=== PATIENT | female | born 1975 | race Caucasian/White ===

== ENCOUNTER 2018-11-18 12:21 | Day surgery (SDC) | payer OTHER ==
[2018-11-15 15:23] VITALS: BMI 29.7
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
[~2018-11-18 12:21] MED LIST: ACETAMINOPHEN IV (For NPO) 1,000 MG in EMPTY BAG 1 BAG IVPB ONE; DEXAMETHASONE SOD PHOSPHATE 10 MG/ML 1 ML VIAL IV ONE; HEPARIN SODIUM,PORCINE 5,000 UNIT/ML 1 ML VIAL SQ ONE; INDOCYANINE GREEN 25 MG VIAL IV STA; LACTATED RINGERS 1,000 ML IV SCH; MIDAZOLAM (PF) 2 MG/2 ML VIAL IV PRN; ONDANSETRON 4 MG/2 ML VIAL IVP ONE; SCOPOLAMINE 1.5MG/72HR PATCH TRANSDERM ONE
[2018-11-18 14:00] LABS: Basophils # (A) 0.1 k/uL (0-0.2); Basophils % (A) 1 %; Eosinophils # (A) 0.2 k/uL (0-0.7); Eosinophils % (A) 2 %; HCT 37.5 % (34.0-46.0); HGB 12.2 gm/dL (11.4-16.0); Lymphocytes # (A) 3.5 k/uL (1.0-4.8); Lymphocytes % (A) 37 %; MCH 29.3 pg (25.0-35.0); MCHC 32.6 g/dL (31.0-37.0); MCV 89.7 fL (80.0-100.0); Mean Platelet Volume 7.6; Monocytes # (A) 0.5 k/uL (0-1.0); Monocytes % (A) 5 %; Neutrophils % (A) 54 %; Platelet Count 278 k/uL (150-450); RBC 4.18 m/uL (3.80-5.40); RDW 12.6 % (11.5-15.5); WBC 9.4 k/uL (3.8-10.6)
[2018-11-18] MEDS ORDERED: LIDOCAINE 1% 20 ML VIAL (10MG/ML) FOR IV START INTRADERMA ONE (14:04)
[2018-11-18 14:06] LABS: ALT 29 U/L (9-52); AST 24 U/L (14-36); Alkaline Phosphatase 81 U/L (38-126); Anion Gap 9 mmol/L; Blood Urea Nitrogen 12 mg/dL (7-17); Calcium 9.5 mg/dL (8.4-10.2); Carbon Dioxide 27 mmol/L (22-30); Chloride 107 mmol/L (98-107); Glucose 83 mg/dL (74-99); Potassium 3.8 mmol/L (3.5-5.1); Sodium 143 mmol/L (137-145); Total Bilirubin 0.5 mg/dL (0.2-1.3); Total Protein 7.1 g/dL (6.3-8.2)
[2018-11-18] MEDS ORDERED: LIDOCAINE 1% INJ 10MG/ML (20 ML MDV) ONE (16:19)
[2018-11-18] MEDS ORDERED: NEOSTIGMINE 1 MG/ML 10 ML VIAL ONE (16:19)
[2018-11-18] MEDS ORDERED: MIDAZOLAM 2 MG/2 ML VIAL ONE (16:19)
[2018-11-18] MEDS ORDERED: PROPOFOL 10 MG/ML 20 ML VIAL IV ONE (16:19)
[2018-11-18] MEDS ORDERED: KETOROLAC 30 MG/ML 1 ML VIAL ONE (16:19)
[2018-11-18] MEDS ORDERED: INDOCYANINE GREEN 25 MG VIAL IV ONE (16:19)
[2018-11-18] MEDS ORDERED: SUCCINYLCHOLINE CHLORIDE 100 MG/5 ML SYR IV ONE (16:19)
[2018-11-18] MEDS ORDERED: GLYCOPYRROLATE 0.2 MG/ML 2 ML VIAL ONE (16:19)
[2018-11-18] MEDS ORDERED: fentaNYL (PF) 50 MCG/ML 2 ML AMP ONE (16:19)
[2018-11-18] MEDS ORDERED: ROCURONIUM BROMIDE 10 MG/ML 10 ML VIAL IV ONE (16:19)
[2018-11-18] MEDS: ceFAZolin IN SWFI 2 GM/20 ML SYRINGE IVP ONE ×2 (16:19→16:32)
[2018-11-18] MEDS ORDERED: BUPIVACAIN-EPI 0.25%-1:200,000 30 ML VIAL SQ ONE ×2 (16:32→16:45)
[2018-11-18] MEDS ORDERED: LACTATED RINGERS 1,000 ML IV ONE (17:11)
--- NOTE | 2018-11-18 17:11 | P.OP ---
Date of Procedure: 11/18/18 Description of Procedure: SURGEON: LINETTE POLLOCK MD PREOPERATIVE DIAGNOSES: 1. Right upper quadrant abdominal pain 2. Chronic cholecystitis 3. Hypertensive heart disease 4. Graves' disease 5. Gastroesophageal reflux disease 6. Postop nausea and vomiting POSTOPERATIVE DIAGNOSES: 1. Right upper quadrant abdominal pain 2. Chronic cholecystitis 3. Hypertensive heart disease 4. Graves' disease 5. Gastroesophageal reflux disease 6. Postop nausea and vomiting OPERATION: Robotic-assisted da Tori Xi laparoscopic cholecystectomy, multiport with FIREFLY ESTIMATED BLOOD LOSS: 5 mL. SPECIMENS REMOVED: Gallbladder. COMPLICATIONS: None. OPERATIVE FINDINGS: 1. Chronic cholecystitis with moderate adhesion of greater omentum to gallbladder INDICATIONS: The patient is a 43-year-old female who presents with cholelcystitis. Surgical intervention with a laparoscopic cholecystectomy was described at length including injury to the biliary tree, bleeding, infection, need for further surgery. Informed consent was obtained. Robotic assisted laparoscopic approach was described. Benefits and risks of the procedure including but not limited to bleeding, infection, injury to the biliary tree was described. Informed consent was obtained. DESCRIPTION OF PROCEDURE: Patient was brought to the operating room, placed in supine position. After general induction, the abdomen had been prepped and draped in standard sterile fashion. The robotic da Tori XI system was primed. After a timeout protocol was performed, the patient had been prepped and draped in standard sterile fashion. The patient was injected with indocyanine green. A 5 mm 0 degrees laparoscopic trocar entry was performed along the left upper quadrant. The abdomen insufflated to 15 mmHg pressure which was tolerated well. Diagnostic laparoscopy demonstrated no injury to bowel viscera or mesentery. The liver surface was unremarkable. Next, two 8 mm robotic ports were placed along the right upper abdomen. The camera 8-mm port was maintained along the epigastrium. Another 8 mm port was placed along the left upper abdominal wall after exchanging the 5 mm port. Please note that the ports were placed at least 10 to 15 cm away from the target anatomy of the gallbladder. The robot was docked along the left lateral abdomen. The patient was repositioned in reverse Trendelenburg position. Using a grasper for arm 3, a grasper for arm 4, including hook cautery for arm 1 , the robotic system was docked and primed as described. Instruments were interchanged by the funeral home assistant including hook cautery, Bovie cautery and clip appliers. I had sat at the console. Adhesions of the gallbladder were addressed using cautery. The gallbladder fundus was retracted over the dome of the liver. Initial attention was brought to the infundibulum which was gently retracted in the inferior lateral approach. Using a grasper, the cystic duct including the cystic artery was carefully skeletonized. FIREFLY was used to identify the cystic artery and cystic structures. Large PLASTIC clips were used throughout the entire case. Using a clip diesel maintenance technician 2 clips were placed proximally, and 1 clip was placed distally along the cystic duct and then cauterized with the cautery. Again care was taken to avoid any injury to the biliary tree as the common bile duct was clearly visualized during this portion of dissection. Next, the cystic artery was similarly clipped and cauterized. Electro-Bovie cautery was used to remove the gallbladder from the hepatic fossa. Hemostasis was checked and found to be adequate. The robot was undocked. I re-scrubbed into the case. Using a 10 mm Endo Catch bag via the left upper quadrant incision, the specimen was removed from the abdominal cavity. All pneumoperitoneum instruments were evacuated from the abdominal cavity. The incisions were reapproximated using 4-0 Monocryl in an interrupted subcuticular fashion. Fascial defects were less than 8 mm in size. Please note along the trocar sites, local anesthetic was placed as a field block prior to insertion of all instruments. Liquid glue was applied to the skin. At the end of the procedure needle, sponge, and instrument count had been verified correct by the hand frame surgical elastic knitter. The patient was transferred to postanesthesia care unit in stable condition. Intraoperative films were shared with the patient's family who were very pleased with the level of care. Console time 9 minutes Plan - Discharge Summary New Discharge Prescriptions: New HYDROcodone/APAP 5-325MG [[place] 5-325] 1 tab PO Q4HR PRN 3 Days #18 tab PRN Reason: Pain Ibuprofen [Motrin] 600 mg PO Q8HR PRN #30 tab PRN Reason: Pain No Action Cyclobenzaprine [Flexeril] 5 mg PO HS Omeprazole [PriLOSEC] 20 mg PO QAM Losartan [Cozaar] 50 mg PO QAM Levothyroxine Sodium 137 mcg PO QAM Ibuprofen 800 mg PO TID PRN PRN Reason: Pain Discharge Medication List Cyclobenzaprine [Flexeril] 5 mg PO HS 11/15/18 [History] Ibuprofen 800 mg PO TID PRN 11/15/18 [History] Levothyroxine Sodium 137 mcg PO QAM 11/15/18 [History] Losartan [Cozaar] 50 mg PO QAM 11/15/18 [History] Omeprazole [PriLOSEC] 20 mg PO QAM 11/15/18 [History] HYDROcodone/APAP 5-325MG [[place] 5-325] 1 tab PO Q4HR PRN 3 Days #18 tab [Rx] Ibuprofen [Motrin] 600 mg PO Q8HR PRN #30 tab 11/18/18 [Rx] Follow up Appointment(s)/Referral(s): Linette Pollock MD [STAFF PHYSICIAN] - 11/30/18 Patient Instructions/Handouts: Low Fat Diet (DC), Laparoscopic Cholecystectomy (IP) Activity/Diet/Wound Care/Special Instructions: No lifting over 4 pounds in 2 weeks. May shower. No baths or soaks. Low-fat diet over the weekend. Discharge Disposition: HOME SELF-CARE
[2018-11-18 17:21] VITALS: TEMP 96.8
[2018-11-18] MEDS: HYDROmorphone 0.5 MG/0.5 ML SYRINGE IVP PRN ×2 (17:23→17:28)
[2018-11-18 18:03] VITALS: RESP 18
[2018-11-18 19:00] VITALS: BP 110/73; PULSE 83
== END 2018-11-18 19:38 | disposition home or self-care (01) ==
LOC: OR 12:21
PROVIDERS: ATTEND Surgery Plastic and Reconstructive Surgery
DX: K80.10 Calculus of gallbladder with chronic cholecystitis without obstruction (principal); I11.9 Hypertensive heart disease without heart failure; K21.9 Gastro-esophageal reflux disease without esophagitis; E05.00 Thyrotoxicosis with diffuse goiter without thyrotoxic crisis or storm; I10 Essential (primary) hypertension; E07.9 Disorder of thyroid, unspecified; Z79.890 Hormone replacement therapy; Z79.899 Other long term (current) drug therapy; Z88.8 Allergy status to other drugs, medicaments and biological substances
CPT/HCPCS: 47562; S2900; 80053; 85025; 88304

== ENCOUNTER → 2020-03-05 | Outpatient (CLI) | payer OTHER ==
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
== END | disposition home or self-care (01) ==
LOC: WWCWWP 10:53
PROVIDERS: ATTEND Surgery
DX: Z53.9 Procedure and treatment not carried out, unspecified reason (principal)

== ENCOUNTER → 2020-03-12 | Day surgery (SDC) | payer OTHER ==
[2020-03-12 08:25] VITALS: RESP 16
[2020-03-12 10:12] VITALS: BP 150/80; PULSE 81; TEMP 97.8
--- NOTE | 2020-03-12 10:27 | USB ---
EXAMINATION TYPE: US biopsy breast VAD RT DATE OF EXAM: 03/12/2020 CLINICAL HISTORY: R92.8, Abnormal mammogram. TECHNIQUE: Ultrasound guided vaccuum assisted core biopsy of right breast. COMPARISON: Outside ultrasound 02/12/2020, outside mammogram 02/12/2020 FINDINGS: The ultrasound guided core biopsy procedure and lymph node biopsy procedure was explained to the patient. The risks, benefits, alternatives were discussed. Given the vascular nature on the pre imaging study specific discussion regarding of the risk for bleeding was performed. An informed consent was then obtained. Timeout was performed. The patient was placed in supine positioning for imaging and for the procedure. The overlying skin was prepped with betadine and sterilely draped in usual sterile fashion. Lidocaine 1% was used as anesthetic into the skin and deeper breast tissue was anesthetized with 1% lidocaine with epinephrine up to area of concern in the breast. A small skin livia was made with surgical scalpel. Under ultrasound guidance, a 12-gauge vacuum assisted biopsy device was used to obtain 5 core samples. A biopsy ribbon clip was left in lesion. Under ultrasound guidance Celero needle was utilized to obtain 3 core samples of the abnormal lymph node. A hygroma marked marker was placed in the biopsied lymph node. Good hemostasis was obtained with direct pressure. Discharge instructions were discussed with the patient. The patient will follow up with the referring physician for results. Postprocedure mammogram: No mammographic imaging was performed at this time. This can be performed prior to localization. The patient tolerated the procedure well without any immediate complication. The patient was discharged to home in stable condition. IMPRESSION: 1. Successful ultrasound guided biopsy right breast breast ultrasound lesion. 2. Successful ultrasound-guided biopsy of right axillary lymph node. Pathology Results: Malignant A. RIGHT BREAST AT 9:00 POSITION, NEEDLE CORE BIOPSY: Ranulfo Grade 3 infiltrating duct carcinoma with focal necrosis involving needle core and associated clot. See note. B. RIGHT AXILLARY NODULE, NEEDLE CORE BIOPSIES: Lymph node involved by metastatic adenocarcinoma with multifocal necrosis histologically identical to that in specimen A. ADDENDUM REPORT It is noted that the tumor was negative for HER2 by immunohistochemistry. Given that the tumor is high grade, the findings represent a histopathologic discordance. For this reason, block A1 will be sent for HER2 studies by FISH. When complete, the results can be found in the patient's EMR as a scanned report. Recommendation Surgical consult of the right breast. MTDD
== END ==
LOC: RADUSWWP 08:02
PROVIDERS: ATTEND Surgery
DX: C50.911 Malignant neoplasm of unspecified site of right female breast (principal); C77.3 Secondary and unspecified malignant neoplasm of axilla and upper limb lymph nodes; N64.1 Fat necrosis of breast; Z17.1 Estrogen receptor negative status [ER-]
CPT/HCPCS: 88305; 88342; 88341; 38505; 19083; A4648; J2001; 19084; 76942

== ENCOUNTER → 2020-03-19 | Outpatient (CLI) | payer OTHER ==
--- NOTE | 2020-03-19 14:16 | P.PN ---
Progress Note - Text Progress Note Date: 03/19/20 Chief complaint: Stage IIB right breast cancer, discussion of core biopsy results Camryn is a 44-year-old white female status post ultrasound-guided core biopsy of the right breast at 9:00 [place] [id number]. Pathology revealed infiltrating ductal carcinoma, triple negative, grade 3. This makes her a stage IIb according to NCCN guidelines. I discussed her case with medical oncology who recommended neoadjuvant chemotherapy. Additionally secondary to her young age I have recommended that she have genetic testing. The patient states she tolerated the procedure without difficulty. She does have some ecchymosis at both sites which is resolving. The ecchymosis in the axillas approximately 1" x 1". The ecchymosis at the breast site is approximately 1" x 2.5". She has not had any fever or chills. She has no complaints related to the biopsy. I have had a conference with the patient and her . We have talked about the tumor staging. We have also talked about neoadjuvant chemotherapy, different surgical options, medical and radiation oncology. I discussed with them that the patient will most likely have neoadjuvant chemotherapy prior to any surgical intervention. Surgical options range from lumpectomy and removal of right axillary node which was involved with cancer, possible axillary node dissection, mastectomy plus or minus reconstruction. Additionally treatment options may change based on genetic testing. The patient understands that if she were to have reconstruction she would need to see a plastic surgeon. At this time she is going to have a teleconference with medical oncology. I have answered questions from the patient and her . One question was as to whether or not the patient could continue to work if she starts chemotherapy secondary to immune compromise in the hand unexciting. I suggested that they discuss this with medical oncology. I have also recommended that a Port-A-Cath would be reasonable given neoadjuvant chemotherapy would be most likely recommended and they understand this. The patient and her have been given an appointment to see me in mid March. Is tentatively set for April 11 at 1:40 PM. Her case will be presented at tumor board. At the present time she is believed to be a B1 as graded per the [place] site of breast surgeons grading system. This is a new system being used in the colon but 19 setting. It is appropriate that she would receive neoadjuvant chemotherapy. Results: Stage IIB right breast infiltrating ductal carcinoma T1 and 1 ER negative KS negative HER-2 negative grade 3 Physical exam: Unable to perform his this is a teleconference conference Impression/Plan: 1. Stage IIB T1 N1 and negative KS negative HER-2 negative grade 3 right breast 2. Patient is premenopausal have suggested genetic testing 3. Have discussed case with medical oncology she will have a teleconference with them tomorrow and most likely initiate neoadjuvant chemotherapy 4. Patient is going to follow up with me in mid March depending on the AP and that makes status 5. Most likely will have Port-A-Cath placement for her neoadjuvant chemotherapy 6. If she has any questions or concerns she is going to call the office before 1. Present case at tumor board 8. Patient is a B1 surgical priority as per [place] [employer] Present at teleconference 1. Dr. Jovanny Aguilera 2. Joan Mooney nurse navigator 3. Vanessa Davidson medical imaging technologist CC: Kelly Shaw encounter 30 minutes Encountered was via teleconference. Approximately 30 minutes were spent discussing the results and
== END | disposition home or self-care (01) ==
LOC: WWCWWP 13:30
PROVIDERS: ATTEND Surgery
DX: Z53.9 Procedure and treatment not carried out, unspecified reason (principal)

== ENCOUNTER 2020-03-22 06:23 | Day surgery (SDC) | payer OTHER ==
[2020-03-21 12:24] VITALS: BMI 32.9
[~2020-03-22 06:23] MED LIST changes: -ACETAMINOPHEN IV (For NPO) 1,000 MG in EMPTY BAG 1 BAG IVPB ONE; +HYDROmorphone 0.5 MG/0.5 ML SYRINGE IVP PRN; -INDOCYANINE GREEN 25 MG VIAL IV STA; +LIDOCAINE 1% (10MG/ML) FOR IV START INTRADERMA PRN; -MIDAZOLAM (PF) 2 MG/2 ML VIAL IV PRN; +Pre Op ABX Message 1 EACH MISC MISCELLANE ONE; -SCOPOLAMINE 1.5MG/72HR PATCH TRANSDERM ONE
[2020-03-22] MEDS ORDERED: LACTATED RINGERS 1,000 ML IV ONE (06:50)
[2020-03-22] MEDS ORDERED: SCOPOLAMINE 1.5MG/72HR PATCH TRANSDERM ONE (06:51)
[2020-03-22] MEDS ORDERED: PROPOFOL 10 MG/ML 20 ML VIAL IV ONE (07:51)
[2020-03-22] MEDS ORDERED: LIDOCAINE 1% INJ 10MG/ML (20 ML MDV) ONE (07:51)
[2020-03-22] MEDS ORDERED: fentaNYL (PF) 50 MCG/ML 2 ML AMP ONE (07:51)
[2020-03-22] MEDS ORDERED: MIDAZOLAM 2 MG/2 ML VIAL ONE (07:51)
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
[2020-03-22] MEDS ORDERED: LIDOCAINE 1% INJ 10MG/ML (20 ML MDV) SQ ONE (08:16)
--- NOTE | 2020-03-22 09:00 | P.OP ---
Date of Procedure: 03/22/20 Procedure(s) Performed: PREOPERATIVE DIAGNOSIS: Right breast cancer POSTOPERATIVE DIAGNOSIS: Same PROCEDURE: Port-A-Cath placement SURGEON: Peter EBL: Minimal ANESTHESIA: Sedation COMPLICATIONS: None OPERATIVE PROCEDURE: Patient was brought and placed on the operative table in the supine position. The patient was sedated per anesthesia that time. The chest and neck were prepped and draped in usual sterile fashion. The ultrasound probe was used to identify the location of the left internal jugular vein. The skin was localized with lidocaine. The Seldinger needle was advanced into the IJ under ultrasound guidance. The wire was advanced through the needle under fluoroscopic guidance into the superior vena cava. A port pocket was created in the left infraclavicular location. The catheter was tunneled from the wire entrance site to the port pocket. The port was then connected to the catheter. The dilator introducer was threaded over the guidewire. The guidewire and dilator were then removed. The catheter was advanced through the introducer and introducer was then removed. The tip was seen to be in the right atrial junction. Port was flushed with both saline and a Hep-Lock solution. There was good flow both in and out of the port. The port was sutured in underlying tissues using 3-0 silk sutures. The subcutaneous tissues were reapproximated using 3-0 Vicryl sutures and the skin at both locations using 4-0 Monocryl sutures. Skin glue and sterile dressings then applied. DISPOSITION: Stable to recovery room
[2020-03-22 09:02] VITALS: TEMP 97.6
--- NOTE | 2020-03-22 09:26 | XR ---
EXAMINATION TYPE: XR chest 1V confirm line [facility] DATE OF EXAM: 03/22/2020 COMPARISON: 11/17/2013 HISTORY: 44-year-old female check line placement TECHNIQUE: Single frontal view of the chest is obtained. FINDINGS: Left anterior chest wall injection port with catheter tip at the cavoatrial junction. Heart normal si ze. There seem to be mild patchy density at the periphery of the left mid and lower lung. No pleural effusion. IMPRESSION: 1. Left anterior chest wall injection port with catheter tip at the cavoatrial junction. 2. Unable to exclude some atelectasis or early developing infiltrates at the periphery of the left mi d and lower lung.
[2020-03-22 10:03] VITALS: BP 125/78; PULSE 78; RESP 16
[2020-03-22] MEDS ORDERED: NALOXONE 0.4 MG/ML 1 ML VIAL IV PRN (10:20)
--- NOTE | 2020-03-22 11:02 | FL ---
Fluoroscopy HISTORY: Portacath placement 21 seconds fluoroscopy time supplied to the referring clinician. 1 intraoperative C-arm images docum ent the procedure. See dictated report from general surgery.
== END 2020-03-22 10:35 | disposition home or self-care (01) ==
LOC: OR 06:23
PROVIDERS: ATTEND Surgery
DX: C50.911 Malignant neoplasm of unspecified site of right female breast (principal); I10 Essential (primary) hypertension; K21.9 Gastro-esophageal reflux disease without esophagitis; E05.00 Thyrotoxicosis with diffuse goiter without thyrotoxic crisis or storm; Z88.8 Allergy status to other drugs, medicaments and biological substances; Z79.890 Hormone replacement therapy; Z79.899 Other long term (current) drug therapy; Z90.49 Acquired absence of other specified parts of digestive tract; Z98.890 Other specified postprocedural states
CPT/HCPCS: 81025; 87635; 77001; 36561; C1788; J2250; J1644; J1100; J2405; J2001; J3010; J1642; J2704

== ENCOUNTER 2020-03-25 14:20 | Emergency (ER) | payer OTHER ==
[2020-03-25 14:27] VITALS: RESP 18
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
[2020-03-25 14:57] LABS: Basophils # (A) 0.1 k/uL (0-0.2); Basophils % (A) 1 %; Eosinophils # (A) 0.3 k/uL (0-0.7); Eosinophils % (A) 3 %; HGB 12.6 gm/dL (11.4-16.0); Lymphocytes # (A) 3.9 k/uL (1.0-4.8); Lymphocytes % (A) 31 %; MCH 29.9 pg (25.0-35.0); MCHC 33.3 g/dL (31.0-37.0); MCV 89.8 fL (80.0-100.0); Mean Platelet Volume 8.6; Monocytes # (A) 0.6 k/uL (0-1.0); Monocytes % (A) 4 %; Neutrophils # (A) 7.4 k/uL (1.3-7.7); Neutrophils % (A) 59 %; Platelet Count 276 k/uL (150-450); RBC 4.22 m/uL (3.80-5.40); RDW 12.5 % (11.5-15.5); WBC 12.5 k/uL (3.8-10.6)
[2020-03-25 15:05] LABS: ALT 19 U/L (4-34); AST 30 U/L (14-36); African American GFR (CKD) >90 (>60 ml/min/1.73 sqM); Albumin 4.5 g/dL (3.5-5.0); Alkaline Phosphatase 64 U/L (38-126); Anion Gap 9 mmol/L; Blood Urea Nitrogen 16 mg/dL (7-17); Calcium 9.9 mg/dL (8.4-10.2); Carbon Dioxide 23 mmol/L (22-30); Chloride 104 mmol/L (98-107); Glucose 141 mg/dL (74-99); INR 0.9 (<1.2); Magnesium 2.1 mg/dL (1.6-2.3); Non-African American GFR(CKD) >90 (>60 ml/min/1.73 sqM); Partial Thromboplastin Time 23.1 sec (22.0-30.0); Potassium 3.7 mmol/L (3.5-5.1); Prothrombin Time 9.5 sec (9.0-12.0); Sodium 136 mmol/L (137-145); Total Bilirubin 0.3 mg/dL (0.2-1.3); Total Protein 7.4 g/dL (6.3-8.2)
--- NOTE | 2020-03-25 16:17 | CT ---
EXAMINATION TYPE: CT angio chest DATE OF EXAM: 03/25/2020 COMPARISON: Chest x-ray 3 days ago. Newly diagnosed breast cancer. HISTORY: Dyspnea on exertion. Port placed [address] DLP: 385 mGycm. Automated Exposure Control for Dose Reduction was Utilized. CONTRAST: CTA scan of the thorax is performed with IV Contrast, patient injected with 100 mL of Isovue 370, pul monary embolism protocol. MIP Images are created on CT scanner and reviewed. FINDINGS: LUNGS: The lungs are grossly clear, there is no concerning parenchymal mass or nodule identified. T here is no pleural effusion or pneumothorax seen. The tracheobronchial tree is patent. MEDIASTINUM: There is satisfactory enhancement of the pulmonary artery and its branches, there is no CT evidence for pulmonary embolism. Satisfactory enhancement of thoracic aorta without aneurysm or d issection. There are no greater than 1 cm hilar or mediastinal lymph nodes. No cardiomegaly or edgardo cardial effusion is seen. OTHER: There is 1.8 cm right breast mass axial image 60 with surrounding fat stranding presumed produ ct of recent biopsy. Abnormal 2.3 cm lymph node biopsy clip right axilla next image 39 is noted. Stab le left internal jugular Mediport catheter terminating in SVC. IMPRESSION: No CT evidence for acute pulmonary embolism. No suspicious acute pulmonary process.
[2020-03-25 16:50] VITALS: BP 148/85; PULSE 70; TEMP 98.1
== END 2020-03-25 16:49 | disposition home or self-care (01) ==
LOC: EC 14:20
DX: R07.89 Other chest pain (principal); R06.09 Other forms of dyspnea; K21.9 Gastro-esophageal reflux disease without esophagitis; I10 Essential (primary) hypertension; E05.00 Thyrotoxicosis with diffuse goiter without thyrotoxic crisis or storm; C50.911 Malignant neoplasm of unspecified site of right female breast; Z79.890 Hormone replacement therapy; Z79.899 Other long term (current) drug therapy; Z88.8 Allergy status to other drugs, medicaments and biological substances; Z95.9 Presence of cardiac and vascular implant and graft, unspecified; Z98.890 Other specified postprocedural states
CPT/HCPCS: 36415; 93005; 80053; 83735; 84484; 85025; 85610; 85730; 71275; 99285; Q9967

== ENCOUNTER → 2020-03-25 | Outpatient (CLI) | payer OTHER ==
--- NOTE | 2020-03-26 08:44 | ECHOF ---
Referral Reason:C50.411 Breast Cancer MEASUREMENTS -------- HEIGHT: 160.0 cm WEIGHT: 84.8 kg BP: RVIDd: 3.0 cm (< 3.3) IVSd: 1.2 cm (0.6 - 1.1) LVIDd: 4.0 cm (3.9 - 5.3) LVPWd: 1.2 cm (0.6 - 1.1) IVSs: 1.5 cm LVIDs: 2.8 cm LVPWs: 1.8 cm LAESV Index (A-L): 22.96 ml/m Ao Diam: 2.8 cm (2.0 - 3.7) AV Cusp: 2.1 cm (1.5 - 2.6) LA Diam: 3.8 cm (2.7 - 3.8) MV EXCURSION: 19.089 mm (> 18.000) MV EF SLOPE: 77 mm/s (70 - 150) EPSS: 0.5 cm MV E Lloyd: 0.91 m/s MV DecT: 230 ms MV A Lloyd: 0.87 m/s MV E/A Ratio: 1.04 RAP: 5.00 mmHg RVSP: 25.48 mmHg TAPSE: 25.34 mm FINDINGS -------- Sinus rhythm. This was a technically good study. The left ventricular size is normal. There is mild concentric left ventricular hypertrophy. Overa ll left ventricular systolic function is normal with, an EF between 55 - 60 %. Normal LAP. Grade 1 Diastolic Dysfunction. The right ventricle is normal in size. The left atrial size is normal. Normal LA size by volume 22+/-6 ml/m2. The right atrial size is normal. The aortic valve is trileaflet and appears structurally normal. The mitral valve is normal. There is trace mitral regurgitation. The tricuspid valve appears structurally normal. Trace tricuspid regurgitation present. Right katt tricular systolic pressure is normal at < 35 mmHg. There is no pulmonic regurgitation present. The aortic root size is normal. Normal inferior vena cava with normal inspiratory collapse consistent with estimated right atrial pre ssure of 5 mmHg. There is no pericardial effusion. CONCLUSIONS -------- 1. Sinus rhythm. 2. This was a technically good study. 3. The left ventricular size is normal. 4. There is mild concentric left ventricular hypertrophy. 5. Overall left ventricular systolic function is normal with, an EF between 55 - 60 %. 6. Normal LAP. Grade 1 Diastolic Dysfunction. 7. The right ventricle is normal in size. 8. The left atrial size is normal. 9. Normal LA size by volume 22+/-6 ml/m2. 10. The right atrial size is normal. 11. The aortic valve is trileaflet and appears structurally normal. 12. The mitral valve is normal. 13. There is trace mitral regurgitation. 14. The tricuspid valve appears structurally normal. 15. Trace tricuspid regurgitation present. 16. Right ventricular systolic pressure is normal at < 35 mmHg. 17. There is no pulmonic regurgitation present. 18. The aortic root size is normal. 19. Normal inferior vena cava with normal inspiratory collapse consistent with estimated right atrial pressure of 5 mmHg. 20. There is no pericardial effusion. RESPIRATORY CARE INSTRUCTOR: Martha Dukes RDCS
== END | disposition home or self-care (01) ==
LOC: RADECHMAIN 10:46
PROVIDERS: ATTEND Internal Medicine Hematology & Oncology
DX: I08.1 Rheumatic disorders of both mitral and tricuspid valves (principal); I51.7 Cardiomegaly; Z88.8 Allergy status to other drugs, medicaments and biological substances
CPT/HCPCS: 93306

== ENCOUNTER → 2020-03-27 | Outpatient (CLI) | payer OTHER ==
--- NOTE | 2020-03-27 12:48 | CT ---
EXAMINATION TYPE: CT abdomen pelvis w con DATE OF EXAM: 03/27/2020 COMPARISON: None INDICATION: Follow-up breast cancer DLP: 750.5 mGycm, Automated exposure control for dose reduction was used. CONTRAST: 100 mL of Isovue 300. Study performed with Oral Contrast TECHNIQUE: Axial images were obtained from above the diaphragm to the pubic rami in the axial plane a t 5 mm thick sections. Reconstructed images are reviewed on the computer in the coronal plane. FINDINGS: Limited CT sections are obtained the lung bases. The lung bases are clear. CT ABDOMEN: Liver: Normal Spleen: Normal Pancreas: Normal Adrenal glands: The adrenal glands are normal. Gallbladder: Not identified. Correlate with surgical history. Kidneys: No masses are evident. No hydronephrosis is present. There is a 1.3 cm cyst measuring 31 H [place] units on the mid right kidney. Monitoring is recommended. This cannot be classified as a si mple cyst. Delayed images were obtained through the kidneys, which remain unremarkable. Aorta: Normal Inferior vena cava: Normal. CT PELVIS: Loops of bowel within the abdomen and pelvis are normal. There are loops of bowel which are incom pletely distended or lack oral contrast limiting their evaluation. Colon contains fecal debris. Coupl e of diverticuli are within the sigmoid colon Appendix: Not identified. Correlate with surgical history. No suspicious dilated structures are evide nt. Urinary bladder: Normal. Genitourinary structures: Uterus may contain a posterior lower segment 2 cm fibroid. Adnexal regions appear unremarkable. Osseous structures: No suspicious lytic or sclerotic lesions. IMPRESSIONS: 1. Right renal cyst. Monitoring is recommended.
--- NOTE | 2020-03-27 15:47 | NM ---
EXAMINATION TYPE: NM bone scan whole body DATE OF EXAM: 03/27/2020 COMPARISON: Correlation CT 03/27/2020 HISTORY: 44-year-old female history of left breast cancer, C50.411 TECHNIQUE: Delayed whole-body scanning was performed following the injection of 20.6 mCi Tc 99m MDP. Images acquired 4 hours post injection. FINDINGS: Degenerative tracer activity along the posterior elements of the lower lumbar spine, likely at the L4 -L5 facet joints. Additional degenerative tracer activity at the knees and hind foot/ankle regions. N o suspicious distribution of tracer to suggest osseous metastatic disease. IMPRESSION: Scattered degenerative tracer activity, especially at the L4-L5 facet joints. No scintigraphic eviden ce for osseous metastatic disease.
== END | disposition home or self-care (01) ==
LOC: RADNMMAIN 08:48
PROVIDERS: ATTEND Internal Medicine Hematology & Oncology
DX: N28.1 Cyst of kidney, acquired (principal); C40.1 Malignant neoplasm of short bones of upper limb; Z88.8 Allergy status to other drugs, medicaments and biological substances
CPT/HCPCS: 74177; 78306; A9503; Q9967

== ENCOUNTER → 2020-03-28 | Outpatient (CLI) | payer OTHER ==
--- NOTE | 2020-04-02 09:07 | BMR ---
EXAMINATION TYPE: MR breast BILAT wo/w con DATE OF EXAM: 03/28/2020 COMPARISON: Right breast biopsy dated 03/12/2020 and right axillary positive biopsy of the same date. Outside right breast ultrasound dated 02/12/2020 and diagnostic mammogram of the same date. Screening mammogram dated 02/08/2020. HISTORY: Rt breast ca TECHNIQUE: A series of fat and water weighted images in the long and short axis views of both breasts are obtained in conjunction with dynamic contrast MRI with subtraction technique. The patient was i njected with 8.5 mL intravenous Gadavist gadolinium contrast. Three-dimensional and additional post processing imaging is created on independent workstation and reviewed during official interpretation of this study. FINDINGS: The breasts are composed of heterogenous fibroglandular tissue with mild symmetric backgrou nd parenchymal enhancement. RIGHT BREAST: The 9:00 right breast mass measured approximately 1.3 x 0.7 x 0.6 cm on the initial ult rasound of 02/12/2020 and measured approximately 2.6 cm the day of biopsy. On today's study the mass d emonstrates T2 hyperintense central cystic necrosis and susceptibility artifact from a biopsy marker seen at the lateral aspect of the mass. This mass measures 2.9 x 2.3 x 2.8 cm and is seen at posterio r depth approximately 11 cm from the nipple. Of note there is linear nonmass enhancement extending fr om the posterior aspect of the mass to the right pectoralis muscle with a minute amount of enhancemen t in the right pectoralis muscle such as on postcontrast series 701 image 294 (marked on the image). The primary mass demonstrates mixed kinetics. Nonmass enhancement extends from the anterior margin of the mass measuring a length of approximately 2.8 cm on postcontrast image 280 of series 701. This demonstrates mostly type I persistent kinetics h owever there are foci of plateau kinetics, type II also present. LEFT BREAST: No suspicious mass nor nonmass enhancement. Scattered subcentimeter T2 hyperintense none nhancing cysts. ADENOPATHY: Pathologically proven morphologically abnormal right axillary lymph node containing a bio psy marker measures 2.4 x 2.5 cm and is seen just lateral to the pectoralis major muscle and adjacent to an axillary artery branch vessel. High within the right axilla near the axillary artery no suspic ious pathologic adenopathy is seen. Adjacent to the biopsy-proven lymph node there is a smaller suspi cious 0.7 cm short axis lymph node margin image 328. No suspicious left axillary adenopathy or bilate ral internal mammary adenopathy is seen. OTHER: Left-sided Mediport is present. Small hiatal hernia is seen. IMPRESSION: BI-RADS [id number] breast cancer. 1. Suspicious linear nonmass enhancement extending from anterior margin of the the biopsy-proven righ t breast cancer at the 9:00 position. If breast to patient therapy is pursued MRI guided biopsy would be recommended of the more anterior margin to establish overall extent of disease. 2. The biopsy-proven right breast cancer at the 9:00 position containing a biopsy marker at its later al margin measures 2.9 x 2.3 x 2.8 cm. 3. Pathologically proven right axillary adenopathy is low lying towards the axillary tail with a dire ctly adjacent suspicious lymph node. No additional suspicious adenopathy bilaterally. 4. No MR evidence of malignancy in the left breast.
== END | disposition home or self-care (01) ==
LOC: RADMRIMAIN 13:34
PROVIDERS: ATTEND Internal Medicine Hematology & Oncology
DX: C50.411 Malignant neoplasm of upper-outer quadrant of right female breast (principal)
CPT/HCPCS: 77049; C8937; A9585

== ENCOUNTER → 2020-04-02 | Outpatient (CLI) | payer OTHER ==
--- NOTE | 2020-04-02 15:11 | US ---
EXAMINATION TYPE: US venous doppler duplex UE RT DATE OF EXAM: 04/02/2020 COMPARISON: NONE CLINICAL HISTORY: M79.621 pain in R upper limb. Patient had right breast and axilla biopsy in February, diagnosed with breast cancer. Pain in right arm SIDE PERFORMED: Right Right Arm: Negative for DVT Grayscale, color doppler, spectral doppler imaging performed of the deep veins of the right upper ext remity. There is normal flow, compressibility and vascular waveforms. IMPRESSION: No ultrasound evidence for acute deep or superficial venous thrombosis in the right upper extremity on the images saved.
== END | disposition home or self-care (01) ==
LOC: RADUSWWP 14:30
PROVIDERS: ATTEND Internal Medicine Hematology & Oncology
DX: M79.621 Pain in right upper arm (principal)

== ENCOUNTER → 2020-04-11 | Outpatient (CLI) | payer OTHER ==
[2020-04-11 14:00] VITALS: BP 113/77; PULSE 81; RESP 18; TEMP 97.7
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
== END | disposition home or self-care (01) ==
LOC: WWCWWP 13:40
PROVIDERS: ATTEND Surgery
DX: Z53.9 Procedure and treatment not carried out, unspecified reason (principal)

== ENCOUNTER → 2020-08-08 | Outpatient (CLI) | payer OTHER ==
[2020-08-08 10:14] VITALS: BP 149/90; PULSE 80; RESP 16; TEMP 97.9
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
== END | disposition home or self-care (01) ==
LOC: WWCWWP 09:58
PROVIDERS: ATTEND Surgery
DX: Z53.9 Procedure and treatment not carried out, unspecified reason (principal)

== ENCOUNTER → 2020-08-23 | Outpatient (CLI) | payer OTHER ==
[2020-08-23 10:38] VITALS: BP 132/85; PULSE 55; RESP 18; TEMP 98.2
--- NOTE | 2020-08-23 11:02 | P.PN ---
Progress Note - Text Progress Note Date: 08/23/20 [id number]- invasive right breast cancer Camryn is a 44 year old female with a complaint of [place] [address]. The breast were heterogeneously dense. Spot compression views demonstrated an irregular 2.6 cm mass in the posterior upper outer right breast just anterior to the pectoralis muscle. No lesions of concern were noted in the left breast. The patient then underwent an ultrasound which revealed at the 9 o'clock position a 1.3 x 0.6 cm spiculated lesion as well as an abnormal right axillary lymph node. The recommendation was for ultrasound-guided core biopsy of the lesion at 9:00 as well as the lesion in the [place]illa[place] [address]. Pathology revealed infiltrating ductal carcinoma, triple negative grade 3. [place] [address]. This revealed in the right breast suspicious linear non-mass enhancement extending from the anterior margin of the biopsy-proven right breast cancer at 9:00. 2. Biopsy-proven right breast cancer 9:00 containing the biopsy marker its lateral margin measures 2.9 x 2.2 x 2.8 cm 3. Pathologically proven right axillary adenopathy 4. No MRI evidence of malignancy in the left breast There is some concern as to biopsy of the anterior portion of the lesion to abdulkadir the true extent of the disease. Some consideration as to repeating the MRI and then it additional biopsy to determine the extent of the lesion this was not performed. The lump after the second treatment is no longer palpable. She wears a 38 C Bra. She has not had any lumps in her breast in the past. She has no history of nipple discharge, no trauma or infection to her breast. She had a bone scan and CT abdomen and pelvis performed which did not show any evidence of metastatic disease. The patient has met with Dr. Jimenez and has been started on roverto-adjuvant chemotherapy. She will have 4 doses every 2 weeks for 8 weeks, and then 12 doses over 12 weeks. This will be a total of 20 weeks. At this time she is taking cyclophosphamide and Adriamycin. She will then take paclitaxel for the remainder of the time. She has had 15 cycles of chemotherapy. She has 1 more cycle left, she is presently taking Taxol once a week. She has tolerate the chemotherapy with no difficulty. She has had genetic testing which was negative for increased breast cancer risk. This underwent a breast MRI 71375, this did not reveal any abnormal signal or suspicious enhancement in the region of the biopsy-proven malignancy in the right breast at 9:00 no residual mass enhancement was identified There were morphologically normal-appearing lymph nodes which had decreased in size and #1 compared to previous study with no enlarged adenopathy No abnormal signal enhancement in the left breast The case was discussed at tumor board. The patient has seen Dr. See from plastic surgery and has expressed a desire to have a KRYSTAL reconstruction which Dr. See does not perform, and he therefore referred her to Dr. Blake at [facility]. At this time we have had a long discussion regarding the MRI results as well as the surgical options. Surgical options would be lumpectomy with radiation therapy versus mastectomy plus or minus reconstruction versus bilateral mastectomy as per the patient's request. [place] node biopsy is recommended without frozen section after talking to pathology as it was felt that the results will be better with a permanent sections that she's had neoadjuvant therapy. She understands all options and wishes to proceed with bilateral skin sparing mastectomy and a sentinel node biopsy. She understands this will be done under separate incisions. Risks of sentinel node biopsy include but are not limited to bleeding, infection, reaction to the anesthetic. If on frozen section the abdomen was noted to be positive there is a possibility that a completion dissection would be recommended. Impression/Plan: 1. T2 N1 G3 ER negative. Negative HER-2 negative invasive right breast cancer status post neoadjuvant chemotherapy. 2. As per patient's desire bilateral skin sparing mastectomies with right sentinel node injection, right sentinel node biopsy 3. Surgical clearance from [facility] CC: [facility] encounter 30 minutes spent in planning and counselling
== END | disposition home or self-care (01) ==
LOC: WWCWWP 10:27
PROVIDERS: ATTEND Surgery
DX: Z53.9 Procedure and treatment not carried out, unspecified reason (principal)

== ENCOUNTER → 2020-09-12 | Outpatient (CLI) | payer OTHER ==
[2020-09-12 08:34] VITALS: BP 116/76; PULSE 90; RESP 12; TEMP 98.2
--- NOTE | 2020-09-12 09:03 | MM ---
Reason for exam: additional evaluation requested from prior study. Last mammogram was performed 7 months ago. History: Patient has history of breast cancer at age 44. Malignant US biopsy breast VAD RT of the right breast, March 12, 2020. Malignant US biopsy breast add'l VAD RT of the right breast, March 12, 2020. Chemotherapy. Took hormonal contraceptives for 10 years beginning at age 16. Physical Findings: Nurse did not find any significant physical abnormalities on exam. MG Diagnostic Mammo RT w CAD CC and MLO view(s) were taken of the right breast. Prior study comparison: March 28, 2020, bilateral MR breast bilat wo/w con. February 12, 2020, mammogram. February 08, 2020, mammogram. November 19, 2016, mammogram. There is no discrete abnormality including previous mass. Biopsy clip upper outer quadrant and clip lymph node right axilla. This finding is changed when compared with previous exams. These results were verbally communicated with the patient and result sheet given to the patient on 09/12/20. ASSESSMENT: Known biopsy proven malignancy, BI-RAD 6 RECOMMENDATION: Treatment plan of the right breast. Appropriate treatment and follow up.
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
--- NOTE | 2020-09-12 11:13 | USB ---
Reason for exam: clinical finding. History: Patient has history of breast cancer at age 44. Malignant US biopsy breast VAD RT of the right breast, March 12, 2020. Malignant US biopsy breast add'l VAD RT of the right breast, March 12, 2020. Chemotherapy. Took hormonal contraceptives for 10 years beginning at age 16. US Breast Axilla RT Right limited breast axilla ultrasound demonstrates a 0.4 x 0.5 x 0.5cm lymph node with hydromark at the axilla. These results were verbally communicated with the patient and result sheet given to the patient on 09/12/20. ASSESSMENT: Known biopsy proven malignancy, BI-RAD 6 RECOMMENDATION: Localization and excision of the right breast. Ultrasound guided wire localization with mammogram fonfirmation of positioning nest to lymph node clip.
== END | disposition home or self-care (01) ==
LOC: RADMAMWWP 07:31
PROVIDERS: ATTEND Surgery
DX: R92.8 Other abnormal and inconclusive findings on diagnostic imaging of breast (principal); Z85.3 Personal history of malignant neoplasm of breast
CPT/HCPCS: 77065

== ENCOUNTER 2020-09-17 07:19 | Observation (INO) | payer OTHER ==
[2020-09-13 13:15] VITALS: BMI 32.9
[~2020-09-17 07:19] MED LIST changes: -HYDROmorphone 0.5 MG/0.5 ML SYRINGE IVP PRN; +MIDAZOLAM 2 MG/2 ML VIAL IV PRN
[2020-09-17] MEDS ORDERED: LIDOCAINE 1% INJ 10MG/ML (20 ML MDV) SQ ONE (08:46)
[2020-09-17] MEDS ORDERED: SUCCINYLCHOLINE CHLORIDE 100 MG/5 ML SYR IV ONE (09:53)
[2020-09-17] MEDS ORDERED: LIDOCAINE 1% INJ 10MG/ML (20 ML MDV) ONE (09:53)
[2020-09-17] MEDS ORDERED: ONDANSETRON 4 MG/2 ML VIAL ONE (09:53)
[2020-09-17] MEDS ORDERED: ePHEDrine SULFATE/0.9% NACL/PF 50 MG/5 ML SYRINGE IV ONE (09:53)
[2020-09-17] MEDS ORDERED: PHENYLEPHRINE-0.9% NACL SYG 1 MG/10 ML SYRINGE ONE (09:53)
[2020-09-17] MEDS ORDERED: PROPOFOL 10 MG/ML 20 ML VIAL IV ONE (09:53)
[2020-09-17] MEDS ORDERED: fentaNYL (PF) 50 MCG/ML 2 ML AMP ONE (09:53)
[2020-09-17] MEDS ORDERED: MIDAZOLAM 2 MG/2 ML VIAL ONE (09:53)
--- NOTE | 2020-09-17 09:58 | P.PN ---
Progress Note - Text Progress Note Date: 09/17/20 Patient will have her Port-A-Cath removed today.
--- NOTE | 2020-09-17 10:03 | NM ---
EXAMINATION TYPE: NM sentinel node injection DATE OF EXAM: 09/17/2020 COMPARISON: Ultrasound-guided right axilla needle localization same day HISTORY: 45-year-old female with biopsy-proven right breast cancer status post neoadjuvant chemothera py. Scheduled for mastectomy. TECHNIQUE AND FINDINGS: The procedure of sentinel lymph node injection was explained to the patient. The benefits, alternatives, and risks were discussed. An informed consent was then obtained. Overlying skin is cleaned with sterile alcohol. Following this, 531 mCi Tc 99m Tilmanocept was injec ruben surrounding the outer aspect of the right nipple intradermally. The patient tolerated the procedure well without any immediate complication. The patient was kept in the radiology department for short stay after the procedure and then taken to surgery for surgical p rocedure what is presumed intraoperative gamma probe will be used for sentinel lymph node detection. IMPRESSION: Right breast radiotracer injection for sentinel node localization as above.
--- NOTE | 2020-09-17 10:03 | P.NAPBC ---
NAPBC Queries - NAPBC Queries Was patient's case review presented at [facility] tumor board? If no, comment.: Yes Was patient's pathology reviewed at [facility]? If no, comment.: Yes Was breast conservation surgery offered? If no, comment.: Yes Was sentinel node biopsy offered? If no, comment.: Yes Was diagnosis confirmed by percutaneous core biopsy? If no, comment.: Yes Is patient mastectomy patient?: Yes Was a preop referral to reconstructive surgeon offered?: Yes Clinical Stage: [id number]
--- NOTE | 2020-09-17 10:58 | P.OP ---
Date of Procedure: 09/17/20 Preoperative Diagnosis: Breast cancer Postoperative Diagnosis: Breast cancer left ht Procedure(s) Performed: Removal Port-A-Cath Anesthesia: SANG Surgeon: Thanh Witt Estimated Blood Loss (ml): 5 Pathology: none sent Condition: stable Disposition: PACU Description of Procedure: The patient had started her mastectomy procedure with Dr. Leonila Petty. The port was exposed. The subcutaneous tissue over the port was dissected with a letter cautery. The port was then removed. Please see Dr. Leonila Petty Sandhya dictation for the remainder of the procedure.
[2020-09-17] MEDS ORDERED: NALOXONE 0.4 MG/ML 1 ML VIAL IV PRN (13:03)
--- NOTE | 2020-09-17 13:03 | P.OP ---
Date of Procedure: 09/17/20 Preoperative Diagnosis: Right breast cancer status post neoadjuvant chemotherapy,Cancer was in the upper outer quadrant Postoperative Diagnosis: Same Procedure(s) Performed: Bilateral skin sparing mastectomy, right sentinel node biopsy, right Axilla needle local excision of lymph node which had been positive pre neoadjuvant therapy Anesthesia: SANG Surgeon: Hillary Mauricio Estimated Blood Loss (ml): 30 IV fluids (ml): 1,000 Pathology: other (Bilateral breast, right axillary nodes,) Condition: stable (Bilateral breast, right axillary marco antonio tissue) Disposition: same day Indications for Procedure: Patient status post neoadjuvant chemotherapy right breast cancer upper outer quadrant area with positive node Operative Findings: Fibrofatty breast Description of Procedure: Camryn is a 45-year-old white female who was diagnosed with a right breast cancer in the upper outer quadrant, and a positive axillary node. She underwent neoadjuvant chemotherapy. She post chemotherapy wish for bilateral mastectomy. She wishes a skin sparing mastectomy to be performed and is planning to have a KRYSTAL reconstruction in the future. The risks and benefits of the procedure were discussed with the patient and she wished to proceed. Following needle localization of the lymph nodes which have been positive for the neoadjuvant chemotherapy and injection of lymphatic kind for sentinel mode biopsy the patient was brought to the operative suite. Both breasts in the right axilla were prepped and draped in a sterile fashion following induction of anesthesia. The left breast was approached initially. A circumareolar incision was made and skin flaps were developed circumferentially. Dissection was performed in the plane between the subcutaneous tissue and the breast tissue. This was carried down to the pectoralis major muscle. At this point the breast was removed from medial to lateral being careful to maintain hemostasis using both the Harmonic scalpel and the electrocautery device. During this dissection were careful to maintain uniform flap thickness. During this portion of the procedure Dr. Witt entered and removed the Port-A-Cath. Surgicel in powder form was placed. After we were assured that hemostasis was attained a DOLORES drain was placed. The subcutaneous tissues were closed using 3-0 Vicryl suture followed by 4-0 Monocryl. The right breast was then approached. A circumareolar incision was made and circumferential skin flaps were developed. Again we were careful to maintain uniform flap thickness and remove all breast tissue. Dissection was performed between the subcutaneous tissue and the breast tissue. Following development of the flaps the breast was removed from medial to lateral being careful to maintain hemostasis using the electrocautery device and the Harmonic scalpel. The breast was removed, sutures removed for orientation short superior and long lateral. The area of the axilla was approached. Using the neoprobe area of greatest radioactivity was identified. This seemed to correspond to the area where the wire localization had been placed. The wire was brought into the wound and followed to the area of the lymph node which was excised. This lymph node also appeared to be the sentinel node. The greatest radioactivity was marked with a suture. The 10 second count on the node was was 3300, the 10 second background count was 37. Radiograph of the lymph node revealed that this was the correct noted in the clip was in place in the node. The wound was well irrigated. After assured that hemostasis was attained Surgicel and pelvis from was placed. 2 DOLORES drains were placed. These were secured using nylon suture. The deep tissues were closed using 3-0 Vicryl suture. This is followed by closure of the skin with 4-0 Monocryl. The patient tolerated the procedure in stable condition. All instrument and sponge counts were correct at the end of the case.
[2020-09-17] MEDS: HYDROmorphone 0.5 MG/0.5 ML SYRINGE IVP PRN ×2 (13:55→14:00)
[2020-09-17] MEDS: DEXTROSE 5%-0.45% NACL 1,000 ML IV SCH ×2 (15:03→23:53)
[2020-09-17] MEDS: HEPARIN SODIUM,PORCINE 5,000 UNIT/ML 1 ML VIAL SQ SCH ×2 (15:03→23:39)
--- NOTE | 2020-09-17 15:21 | USB ---
EXAMINATION TYPE: US breast localization RT, MG diagnostic mammo RT wo CAD, MG surgical specimen RT DATE OF EXAM: 09/17/2020 CLINICAL HISTORY: 45 year-old female with biopsy-proven right breast cancer with involvement right ax illary lymph node. Patient scheduled for mastectomy. Referred for needle localization of the right ax illary lymph node status post neoadjuvant chemotherapy. TECHNIQUE: Needle localization with wire placement and surgical excision of area of concern in the [facility] axilla under ultrasound guidance. COMPARISON: 09/12/2020 FINDINGS: The procedure of needle localization with wire placement and than surgical excision was exp lained to the patient. Benefits, alternatives, and risks were discussed. An informed consent was th en obtained. A lateral ultrasound approach was utilized. The Hydromark clip was identified. The lymph node had considerably diminished in size. The overlying skin was prepped and draped in usual sterile fashion. Lidocaine was used as anesthetic into the skin and subcutaneous tissue up to the level of area of concern. A 5 cm needle was used. It was placed immediately adjacent and through the residual node. At this point, wire was placed and the needle was withdrawn. The wire was fixed to patient's skin. Mammogram was taken and shows the d istal aspect of the needle at the level of the right axillary clip. Images were marked for surgeon. The patient tolerated the procedure well without any immediate complication. The patient was kept in the radiology department for short stay after the procedure and then taken to surgery for surgical e xcision. Targeted clip, small lymph node, and wire are identified in specimen mammogram. The candi ent was kept in hospital for short stay after the procedure and then discharged home in stable condit ion. IMPRESSION: Successful, uncomplicated ultrasound-guided needle localization with wire placement and surgical exci alok of biopsy-proven metastatic right axillary lymph node status post neoadjuvant chemotherapy. Full pathology results to follow.
[2020-09-17] MEDS: HYDROmorphone 1 MG/ML 1 ML SYRINGE IVP PRN ×3 (16:20→23:39)
[2020-09-17] MEDS: ONDANSETRON 4 MG/2 ML VIAL IVP PRN (20:13)
[2020-09-17] MEDS ORDERED: DULoxetine HCL 60 MG CAPSULE.DR PO SCH (21:45)
[2020-09-17] MEDS: ALPRAZolam 0.25 MG TAB PO SCH (22:02)
[2020-09-17] MEDS: LORATADINE 10 MG TAB PO SCH (22:06)
[2020-09-17] MEDS: DOCUSATE 100 MG CAP PO SCH (22:06)
[2020-09-17] MEDS: PYRIDOXINE 50 MG TAB PO SCH (22:07)
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
[2020-09-18] MEDS: CALCIUM CARBONATE LIQUID 500 MG/5 ML CUP PO SCH ×3 (00:36→12:37)
[2020-09-18] MEDS: ONDANSETRON 4 MG/2 ML VIAL IVP PRN (03:48)
[2020-09-18] MEDS: HYDROcodone/APAP 5-325MG 1 EACH TAB PO PRN ×2 (03:58→14:00)
[2020-09-18 05:58] LABS: Basophils % (A) 0 %; Eosinophils # (A) 0.1 k/uL (0-0.7); Eosinophils % (A) 1 %; HCT 30.9 % (34.0-46.0); HGB 10.2 gm/dL (11.4-16.0); Lymphocytes # (A) 1.2 k/uL (1.0-4.8); Lymphocytes % (A) 12 %; MCH 31.8 pg (25.0-35.0); MCHC 33.1 g/dL (31.0-37.0); MCV 96.1 fL (80.0-100.0); Monocytes # (A) 0.6 k/uL (0-1.0); Monocytes % (A) 6 %; Neutrophils # (A) 7.9 k/uL (1.3-7.7); Neutrophils % (A) 80 %; Platelet Count 235 k/uL (150-450); RBC 3.22 m/uL (3.80-5.40); RDW 13.9 % (11.5-15.5); WBC 9.9 k/uL (3.8-10.6)
[2020-09-18 06:07] LABS: African American GFR (CKD) >90 (>60 ml/min/1.73 sqM); Anion Gap 3 mmol/L; Blood Urea Nitrogen 13 mg/dL (7-17); Calcium 9.2 mg/dL (8.4-10.2); Carbon Dioxide 28 mmol/L (22-30); Chloride 99 mmol/L (98-107); Glucose 141 mg/dL (74-99); Magnesium 1.7 mg/dL (1.6-2.3); Non-African American GFR(CKD) >90 (>60 ml/min/1.73 sqM); Potassium 3.2 mmol/L (3.5-5.1); Sodium 130 mmol/L (137-145)
[2020-09-18] MEDS ORDERED: LEVOTHYROXINE 88 MCG TAB PO SCH (06:30)
[2020-09-18] MEDS ORDERED: POTASSIUM CHLORIDE ER 20 MEQ TAB.ER PO STA (06:31)
[2020-09-18] MEDS ORDERED: SODIUM CHLORIDE 0.9% 1,000 ML IV SCH (06:45)
[2020-09-18] MEDS ORDERED: PANTOPRAZOLE 40 MG TABLET PO SCH (07:30)
[2020-09-18] MEDS: LORATADINE 10 MG TAB PO SCH (08:40)
[2020-09-18] MEDS: ALPRAZolam 0.25 MG TAB PO SCH (08:40)
[2020-09-18] MEDS: HEPARIN SODIUM,PORCINE 5,000 UNIT/ML 1 ML VIAL SQ SCH (08:40)
[2020-09-18] MEDS: PYRIDOXINE 50 MG TAB PO SCH (08:40)
[2020-09-18] MEDS: DOCUSATE 100 MG CAP PO SCH (08:40)
[2020-09-18] MEDS: HYDROmorphone 1 MG/ML 1 ML SYRINGE IVP PRN (08:51)
[2020-09-18] MEDS ORDERED: LOSARTAN 50 MG TAB PO SCH (09:00)
--- NOTE | 2020-09-18 11:20 | P.PN ---
Subjective Progress Note Date: 09/18/20 Camryn is a 45-year-old white female postop day #1 bilateral skin sparing mastectomy, right sentinel node biopsy, right ultrasound-guided localization of a node excised. The patient has had some nausea and vomiting most likely related to pain medication. She states her pain is controlled with the dilau did. She is feeling better at this time. Objective - Vital Signs Vital signs: Vital Signs Temp 97.6 F 09/18/20 08:07 Pulse 90 09/18/20 08:07 Resp 16 09/18/20 08:07 BP 124/75 09/18/20 08:07 Pulse Ox 95 09/18/20 08:07 Intake & Output 09/17/20 09/18/20 09/18/20 18:59 06:59 18:59 Intake Total 1250 400 Output Total 630 1100 290 Balance 620 -700 -290 Weight 83.5 kg Intake: IV 1250 Oral 400 Output: Drainage 15 left chest B 5 right chest A 10 Urine 600 900 275 Emesis 200 Estimated Blood Loss 30 Other: Voiding Method Toilet # Voids 1 - Exam BMI 32.6 - Constitutional General appearance: Present: obese - EENT Eyes: Present: EOMI ENT: Present: hearing grossly normal - Neck Neck: Present: normal ROM - Respiratory Respiratory: bilateral: CTA - Cardiovascular Heart sounds: normal: S1, S2 - Integumentary Integumentary Comment(s): Incisions clean and dry DOLORES drains Serous in nature Right chest approximately 20 mL Right chest the 5 mL Left chest 5 mL - Labs CBC & Chem 7: 09/18/20 05:26 09/18/20 05:26 Labs: Abnormal Lab Results - Last 24 Hours (Table) 09/18/20 09/18/20 Range/Units 05:26 05:26 RBC 3.22 L (3.80-5.40) m/uL Hgb 10.2 L (11.4-16.0) gm/dL Hct 30.9 L (34.0-46.0) % Neutrophils # 7.9 H (1.3-7.7) k/uL Sodium 130 L (137-145) mmol/L Potassium 3.2 L (3.5-5.1) mmol/L Creatinine 0.51 L (0.52-1.04) mg/dL Glucose 141 H (74-99) mg/dL Assessment and Plan Assessment: Impression: 1. Patient postop day #1 bilateral skin sparing mastectomy with right sentinel node and ultrasound-guided node excision 2. Hemoglobin 10.2 3. DOLORES drainage serous in nature 4. No evidence of hematoma or infection 5. Patient seen in consultation by Dr. Sawant/home medications resume Plan: 1. Patient will have late discharged today as long she is tolerating diet, nausea improved and her pain is under control 2. Follow-up with Dr. Petty in 1 week 3. Teach drain care 4. Keep Garcia wrap on at all times unless in shower
--- NOTE | 2020-09-18 11:23 | P.DS ---
Providers Date of admission: 09/17/20 20:15 Attending physician: Hillary Mauricio Consults: 09/17/20 13:06 Consult Physician Routine Consulting Provider: Syed Sawant Consult Reason/Comments: medical managment Do you want consulting provider notified?: Yes Primary care physician: Jerrod Mahan [facility] Course: The patient's 45-year-old white female postop day #1 bilateral skin sparing mastectomy and right sentinel node biopsy and ultrasound-guided node resection. Postoperatively she has had some nausea and vomiting which has improved this morning. As long as she is tolerating her diet without difficulty and pain is under control she was discharged home later this afternoon. Plan - Discharge Summary Discharge Rx Participant: No New Discharge Prescriptions: No Action Omeprazole [PriLOSEC] 20 mg PO DAILY Losartan [Cozaar] 50 mg PO QAM Cetirizine HCl [Zyrtec] 10 mg PO BID ALPRAZolam [Xanax] 0.25 mg PO BID Pyridoxine HCl (Vitamin B6) [Vitamin B-6] 100 mg PO BID Levothyroxine Sodium [Synthroid] 88 mcg PO DAILY Docusate [Colace] 100 mg PO BID DULoxetine HCL [Cymbalta] 60 mg PO HS Cyanocobalamin (Vitamin B-12) [Vitamin B-12] 5,000 mcg PO Discharge Medication List Losartan [Cozaar] 50 mg PO QAM 11/15/18 [History] Omeprazole [PriLOSEC] 20 mg PO DAILY 11/15/18 [History] ALPRAZolam [Xanax] 0.25 mg PO BID 03/05/20 [History] Cetirizine HCl [Zyrtec] 10 mg PO BID 03/05/20 [History] Pyridoxine HCl (Vitamin B6) [Vitamin B-6] 100 mg PO BID 08/08/20 [History] Cyanocobalamin (Vitamin B-12) [Vitamin B-12] 5,000 mcg PO TU 09/13/20 [History] DULoxetine HCL [Cymbalta] 60 mg PO HS 09/13/20 [History] Docusate [Colace] 100 mg PO BID 09/13/20 [History] Levothyroxine Sodium [Synthroid] 88 mcg PO DAILY 09/13/20 [History] Follow up Appointment(s)/Referral(s): Hillary Mauricio MD [STAFF PHYSICIAN] - 1 Week Activity/Diet/Wound Care/Special Instructions: Do not drive until seen by Dr. Petty Keep Garcia wrap in place at all times unless in shower, change dressing every day May shower after 48 hours from surgery Teaching drain care, drainage and recorded daily and as needed Discharge Disposition: HOME SELF-CARE
[2020-09-18 12:51] LABS: African American GFR (CKD) >90 (>60 ml/min/1.73 sqM); Anion Gap 5 mmol/L; Blood Urea Nitrogen 9 mg/dL (7-17); Calcium 9.4 mg/dL (8.4-10.2); Carbon Dioxide 27 mmol/L (22-30); Chloride 104 mmol/L (98-107); Glucose 121 mg/dL (74-99); Non-African American GFR(CKD) >90 (>60 ml/min/1.73 sqM); Potassium 3.8 mmol/L (3.5-5.1); Sodium 136 mmol/L (137-145)
[2020-09-18 15:38] VITALS: BP 121/80; PULSE 92; RESP 20; TEMP 97.9
--- NOTE | 2020-09-18 20:19 | P.PN ---
Progress Note - Text Progress Note Date: 09/18/20 - Chief Complaint Breast surgery - History of Present Illness Consultation: This is a pleasant 45-year-old patient was chronic stable medical conditions include GERD, hypertension, hypothyroid following treatment for Graves' disease. Bilateral carpal tunnel syndrome and chronic back pain. Patient has a diagnosis of right breast cancer finish 16 dose of chemotherapy on 08/13/2020. Patient underwent bilateral skin sparing mastectomy, right sentinel node biopsy, right axilla needle local excision of lymph node which had been positive. Today-feeling better. Did tolerate a light breakfast. Has been out of bed. Pain control. Review of systems: Was done for constitutional, cardiovascular, GI, pulmonary. relevant finding as above Current medications reviewed in today's electronic records Physical examination: VITAL SIGNS: 97.9, 92, 20, 121/80, 94% room air GENERAL: Sitting up, more comfortable EYES: Pupils equal. Conjunctiva normal. NECK: JVD unable to assess; masses not palpable. HEART: First and second heart sounds are normal; no edema. LUNGS: Respiratory rate normal; clear to auscultation. ABDOMEN: Soft, nontender, liver spleen not palpable, no masses palpable. PSYCH: [Alert and oriented x3; mood and affect anxious CHEST wall: Dressing over the operative site. INVESTIGATIONS, reviewed in the clinical context: Potassium 3. 2 repeat 3.8 creatinine 0.56 hemoglobin 10.2 From 08/07/2020: White count 6 hemoglobin 9.6 platelets 355 Assessment: -Bilateral skin sparing mastectomy, right sentinel node biopsy, right axilla needle local excision of the lymph node which was positive for pre-neoadjuvant therapy -Obesity BMI 32.6 -GERD -Essential hypertension -Hypothyroid during-chronic low back pain -Bilateral carpal tunnel syndrome -Nausea vomiting in side effect of pain medications -Chronic normocytic anemia Plan: Continue current medication she'll plan. Care discussed with the patient. Potassium replaced this morning. Repeat potassium 3.8. Follow with PCP. Thank you Dr. Kayden Aguilera
[2020-09-24] MEDS ORDERED: CYANOCOBALAMIN 500 MCG TAB PO SCH (09:00)
== END 2020-09-18 15:48 | disposition home or self-care (01) ==
LOC: OR 07:19 → 6PED 13:32 → OR 20:15 → 6PED 20:15
PROVIDERS: ADMIT Surgery; ATTEND Surgery
DX: C50.411 Malignant neoplasm of upper-outer quadrant of right female breast (principal); C77.3 Secondary and unspecified malignant neoplasm of axilla and upper limb lymph nodes; Z17.1 Estrogen receptor negative status [ER-]; G89.29 Other chronic pain; M54.5 Low back pain; G56.03 Carpal tunnel syndrome, bilateral upper limbs; K21.9 Gastro-esophageal reflux disease without esophagitis; E66.9 Obesity, unspecified; R11.2 Nausea with vomiting, unspecified; E89.0 Postprocedural hypothyroidism; I10 Essential (primary) hypertension; T40.605A Adverse effect of unspecified narcotics, initial encounter; D64.9 Anemia, unspecified; E78.2 Mixed hyperlipidemia; F41.1 Generalized anxiety disorder; G60.9 Hereditary and idiopathic neuropathy, unspecified; E78.00 Pure hypercholesterolemia, unspecified; G62.0 Drug-induced polyneuropathy; T45.1X5A Adverse effect of antineoplastic and immunosuppressive drugs, initial encounter; Z88.8 Allergy status to other drugs, medicaments and biological substances; Z79.899 Other long term (current) drug therapy; Z92.21 Personal history of antineoplastic chemotherapy; Z98.890 Other specified postprocedural states; Z91.040 Latex allergy status; Z79.1 Long term (current) use of non-steroidal anti-inflammatories (NSAID); Z79.890 Hormone replacement therapy; Z87.09 Personal history of other diseases of the respiratory system; Z90.49 Acquired absence of other specified parts of digestive tract; Z86.39 Personal history of other endocrine, nutritional and metabolic disease; Z68.32 Body mass index [BMI] 32.0-32.9, adult; Z87.828 Personal history of other (healed) physical injury and trauma; Z91.89 Other specified personal risk factors, not elsewhere classified; Z82.49 Family history of ischemic heart disease and other diseases of the circulatory system; Z81.8 Family history of other mental and behavioral disorders; Z80.0 Family history of malignant neoplasm of digestive organs; Z80.8 Family history of malignant neoplasm of other organs or systems; Z80.1 Family history of malignant neoplasm of trachea, bronchus and lung
CPT/HCPCS: 36590; 19303; 81025; 80048; 83735; 85025; 77065; 76098; 19285; 38792; G0378 ×2; A9520; J2250; J1644 ×2; J1100; J0690; J2405 ×2; J2001; J3010; J1170 ×3; J2370; J0330; J2704; 88307; 88309; 88341; 88342

== ENCOUNTER → 2020-09-26 | Outpatient (CLI) | payer OTHER ==
[2020-09-26 08:46] VITALS: BP 120/82; PULSE 101; RESP 16; TEMP 97.9
--- NOTE | 2020-09-26 09:20 | P.PN ---
Subjective Progress Note Date: 09/26/20 Camryn is a 45-year-old female status post bilateral skin sparing mastectomy and right sentinel node biopsy on . Right breast revealed no residual adenocarcinoma. One of 3 lymph nodes show definitive response to neoadjuvant chemotherapy with no residual adenocarcinoma. Left breast no cancer noted The patient post procedure states she did have some discomfort in the right axillary area yesterday this has improved today. The DOLORES drainage from each drain has been less than 40 mL for the past several days. Objective - Vital Signs Vital signs: Vital Signs Temp 97.9 F 09/26/20 08:43 Pulse 101 H 09/26/20 08:43 Resp 16 09/26/20 08:43 BP 120/82 09/26/20 08:43 Pulse Ox 98 09/26/20 08:43 Intake & Output 09/25/20 09/26/20 09/26/20 18:59 06:59 18:59 Weight 82.1 kg - Constitutional General appearance: Present: average body habitus - EENT Eyes: Present: EOMI ENT: Present: hearing grossly normal - Respiratory Respiratory: bilateral: CTA - Cardiovascular Rhythm: regular Heart sounds: normal: S1, S2 - Integumentary Integumentary Comment(s): incisions clean and dry bilaterally - Musculoskeletal Musculoskeletal: Present: gait normal - Psychiatric Psychiatric: Present: A&O x's 3, appropriate affect, intact judgment & insight Assessment and Plan Assessment: Impression: 1. Patient status post bilateral skin sparing mastectomy on , patient doing well postoperatively 2. DOLORES drainage less than 40 mL for 2 days in a row at all drains DOLORES drains removed Plan: 1. Follow-up with radiation oncology 2. Follow-up medical oncology status post neoadjuvant chemotherapy 3. Follow-up here in 2 weeks Cc: Kelly Shaw
== END | disposition home or self-care (01) ==
LOC: WWCWWP 08:30
PROVIDERS: ATTEND Surgery
DX: Z53.9 Procedure and treatment not carried out, unspecified reason (principal)

== ENCOUNTER → 2020-10-11 | Outpatient (CLI) | payer OTHER ==
[2020-10-11 16:11] VITALS: BP 147/85; PULSE 82; RESP 18; TEMP 97.7
--- NOTE | 2020-10-11 16:21 | P.PN ---
Progress Note - Text Progress Note Date: 10/11/20 Camryn is a 45-year-old female status post bilateral skin sparing mastectomy and right sentinel node biopsy on . Right breast revealed no residual adenocarcinoma. One of 3 lymph nodes show definitive response to neoadjuvant chemotherapy with no residual adenocarcinoma. Left breast no cancer noted The patient post procedure states she did have some skin sensitivity. Lungs: clear Heart: RRR She has bilateral clean and dry, seroma bilateral which are not bothering the patient Drain sites of right axilla healing Impression/Plan: 1. Patient status post bilateral skin sparing mastectomy right sentinel node biopsy on 2. Patient doing well at this time bilateral seromas which are not bothering the patient 3. Follow-up medical oncology 4. Follow-up radiation oncology 5. Patient is planning to have a deeper reconstruction 6. Follow-up here in 3 months time CC: Kelly Shaw
== END | disposition home or self-care (01) ==
LOC: WWCWWP 15:41
PROVIDERS: ATTEND Surgery
DX: Z53.9 Procedure and treatment not carried out, unspecified reason (principal)

== ENCOUNTER → 2020-12-12 | Outpatient (CLI) | payer OTHER ==
[2020-12-12 12:16] VITALS: BP 121/86; PULSE 81; RESP 18; TEMP 98.1
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
== END | disposition home or self-care (01) ==
LOC: WWCWWP 11:27
PROVIDERS: ATTEND Surgery
DX: Z53.9 Procedure and treatment not carried out, unspecified reason (principal)

== ENCOUNTER → 2020-12-13 | Outpatient (CLI) | payer OTHER ==
[2020-12-13 11:53] LABS: Basophils % (A) 0 %; Eosinophils # (A) 0.4 k/uL (0-0.7); Eosinophils % (A) 5 %; HCT 39.7 % (34.0-46.0); HGB 13.1 gm/dL (11.4-16.0); Lymphocytes # (A) 1.9 k/uL (1.0-4.8); Lymphocytes % (A) 29 %; MCH 29.9 pg (25.0-35.0); MCHC 32.9 g/dL (31.0-37.0); Mean Platelet Volume 7.7; Monocytes # (A) 0.4 k/uL (0-1.0); Monocytes % (A) 6 %; Neutrophils # (A) 3.8 k/uL (1.3-7.7); Neutrophils % (A) 56 %; Platelet Count 266 k/uL (150-450); RBC 4.36 m/uL (3.80-5.40); RDW 14.1 % (11.5-15.5); WBC 6.7 k/uL (3.8-10.6)
== END | disposition home or self-care (01) ==
LOC: LABWHC1 10:25
PROVIDERS: ATTEND Surgery
DX: N64.9 Disorder of breast, unspecified (principal)
CPT/HCPCS: 36415; 85025

== ENCOUNTER → 2020-12-13 | Outpatient (CLI) | payer OTHER ==
[2020-12-13 09:55] VITALS: BP 130/88; PULSE 78; RESP 18; TEMP 97.7
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
--- NOTE | 2020-12-19 14:12 | USB ---
Reason for exam: clinical finding. History: Patient has history of breast cancer at age 45. Malignant US breast localization RT of the right breast, September 17, 2020. 2 mastectomies of both breasts, September 17, 2020. Malignant US biopsy breast VAD RT of the right breast, March 12, 2020. Malignant US biopsy breast add'l VAD RT of the right breast, March 12, 2020. Chemotherapy. Took hormonal contraceptives for 10 years beginning at age 16. US Breast Limited RT Right limited breast ultrasound including focal area of concern, retroareolar and axilla demonstrates a 8.0 x 3.2 x 8.1cm complex collection at midline. This shows increasing complexity and is slightly smaller from previous. Possible hematoma. If no surgical intervention, 3 month follow up recommended. ASSESSMENT: Probably benign, BI-RAD 3 RECOMMENDATION: Surgical consultation of the right breast. Ultrasound of the right breast in 3 months.
== END | disposition home or self-care (01) ==
LOC: WWCWWP 09:37
PROVIDERS: ATTEND Surgery
DX: N64.9 Disorder of breast, unspecified (principal); R92.8 Other abnormal and inconclusive findings on diagnostic imaging of breast

== ENCOUNTER → 2020-12-20 | Outpatient (CLI) | payer OTHER ==
[2020-12-20 10:48] VITALS: BP 128/91; PULSE 93; RESP 18; TEMP 97.6
--- NOTE | 2020-12-20 11:03 | P.PN ---
Progress Note - Text Progress Note Date: 12/20/20 Camryn underwent bilateral skin sparing mastectomy and right sentinel node biopsy on for a [id number]- right breast cancer. She had roverto-adjuvand chemotherapy. The breast revealed no residual adenocarcinoma at the time of surgery. One of 3 lymph nodes showed definitive response to neoadjuvant chemotherapy with no residual adenocarcinoma. Left breast showed no cancer. The patient post procedure was not recommended to have any radiation therapy and is not having any additional chemo or hormonal therapy. She is waiting for her reconstruction secondary to the back log for Dr. Blake at [facility]. The patient states about 3 week ago the right mastectomy site became genao and an ultrasound was done which showed approximately a 10 x 9.7 cm area of fluid collection. This was not painful. On the left a sliver of fluid was noted. The patient states she has some mild discomfort on the right side, no pain on the left side. She is doing physical therapy for joint pain related to the chemotherapy. The patient had 120 mL of chocolate colored fluid aspirated on 12-12-20. The patient was seen the next morning stating that the area seems firmer again and she comes in for repeat evaluation. Her ultrasound was reviewed with Dr. Frank from radiology and was repeated at that time. It is most likely that there was a hematoma there and the hematoma is resolving. Hemoglobin was stable at 13.1. On it was 12.1. At this time the area appears to be stable. The patient states that she thinks she may have had some trauma to the chest wall which she did not recall before. 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 This would be an explanation for the cause of the hematoma. Physical exam: Lungs: Clear Heart: Regular rate and rhythm Right breast: Area of hematoma appears to be 11 cm x 8 cm in size. This appears to be loculated area and the surrounding breast tissue appears to be soft without evidence of increase in size of anything Left breast: Soft no evidence of any disease Impression: 1. Resolving hematoma right breast, this has not increased in size since her last visit 2. No evidence of recurrent cancers stage II right breast cancer 3. Patient awaiting reconstruction by plastic surgery Plan: 1. Continue surveillance 2. Follow-up in 2 weeks 3. Follow up sooner if any questions or concerns Cc: Kelly Shaw encounter 15 minutes > 50% of time in planning and counselling
== END | disposition home or self-care (01) ==
LOC: WWCWWP 10:38
PROVIDERS: ATTEND Surgery
DX: Z53.9 Procedure and treatment not carried out, unspecified reason (principal)

== ENCOUNTER → 2021-01-10 | Outpatient (CLI) | payer OTHER ==
[2021-01-10 09:01] VITALS: BP 130/87; PULSE 95; RESP 18; TEMP 98
--- NOTE | 2021-01-10 09:35 | P.PN ---
Subjective Progress Note Date: 01/10/21 Principal diagnosis: bilateral mastectomy with recurrent hematoma/seroma right mastectomy site Camryn underwent bilateral skin sparing mastectomy and right sentinel node biopsy on for a [id number]- right breast cancer. She had roverto- adjuvand chemotherapy. The breast revealed no residual adenocarcinoma at the time of surgery. One of 3 lymph nodes showed definitive response to neoadjuvant chemotherapy with no residual adenocarcinoma. Left breast showed no cancer. The patient post procedure was not recommended to have any radiation therapy and is not having any additional chemo or hormonal therapy. She is waiting for her reconstruction secondary to the back log for Dr. Blake at [facility]. The patient states about 7 weeks ago the right mastectomy site became genao and an ultrasound was done which showed approximately a 10 x 9.7 cm area of fluid collection. This was not painful. On the left a sliver of fluid was noted. The patient states she has some mild discomfort on the right side, no pain on the left side. She is doing physical therapy for joint pain related to the chemotherapy. The patient had 120 mL of chocolate colored fluid aspirated on 12-12-20. The patient was seen the next morning stating that the area seems firmer again and she comes in for repeat evaluation. Her ultrasound was reviewed with Dr. Frank from radiology and was repeated at that time. It is most likely that there was a hematoma there and the hematoma is resolving. Hemoglobin was stable at 13.1. On it was 12.1. At this time the area appears to be stable. The patient states that she thinks she may have had some trauma to the chest wall which she did not recall before. 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 This would be an explanation for the cause of the hematoma. The patient returns for evaluation of the right breast site. The area of the prior mastectomy on the right has again become somewhat firm. The patient has no dizziness no lightheadedness. Objective - Vital Signs Vital signs: Vital Signs Temp 98.0 F 01/10/21 08:55 Pulse 95 01/10/21 08:55 Resp 18 01/10/21 08:55 BP 130/87 01/10/21 08:55 Pulse Ox 97 01/10/21 08:55 Intake & Output 01/09/21 01/10/21 01/10/21 18:59 06:59 18:59 Weight 80.739 kg - Exam BMI 31.5 - Constitutional General appearance: Present: average body habitus - EENT Eyes: Present: EOMI ENT: Present: hearing grossly normal - Neck Neck: Present: normal ROM - Respiratory Respiratory: bilateral: CTA - Cardiovascular Rhythm: regular Heart sounds: normal: S1, S2 - Integumentary Integumentary: Present: normal turgor - Musculoskeletal Musculoskeletal: Present: gait normal - Psychiatric Psychiatric: Present: A&O x's 3, appropriate affect - Additional findings Additional findings: Bilateral mastectomy incisions are clean and dry on the left there is no evidence of any hematoma or seroma on the right there is fullness where previous old hematoma was aspirated it is somewhat firm and will recommend re-aspiration Assessment and Plan Assessment: Impression: Patient status post bilateral skin sparing mastectomies on [id number] T2 N1 M0 G3 ER negative. Negative HER-2 negative right breast cancer. She had neoadjuvant chemotherapy and she did not have any radiation therapy. She is waiting for reconstruction abdomen hospital Several months after the surgery she noted swelling in the right mastectomy site following trauma. She has had hematoma aspirated from this site in the past and has returned today for reevaluation hematoma appears to be present again and we are going to aspirate again. Plan: Aspiration seroma/hematoma right mastectomy site The area of concern in the right breast was prepped using alcohol. An 18 needle on a 60 mL syringe was inserted into the area of concern is approximately 120 mL of dark colored thin blood was removed. This is believed to be breakdown of hematoma at this site. The area was anesthetized using 1% lidocaine prior to aspiration. Patient tolerated the procedure in stable condition. The patient will follow up next week The patient will wear a bra and keep pressure on the site If this gets worse over the weekend and the patient will go to the emergency room. Orthostatic vitals will be obtained CC: DR. Kelly Shaw
== END | disposition home or self-care (01) ==
LOC: WWCWWP 08:41
PROVIDERS: ATTEND Surgery
DX: Z53.9 Procedure and treatment not carried out, unspecified reason (principal)

== ENCOUNTER → 2021-01-28 | Outpatient (CLI) | payer OTHER ==
[2021-01-28 09:54] VITALS: RESP 16; TEMP 98.8
[2021-01-28 10:09] VITALS: BP 136/94; PULSE 83
== END | disposition home or self-care (01) ==
LOC: WWCWWP 08:01
PROVIDERS: ATTEND Surgery
DX: Z53.9 Procedure and treatment not carried out, unspecified reason (principal)

== ENCOUNTER → 2021-03-31 | Outpatient (CLI) | payer OTHER ==
--- NOTE | 2021-03-31 15:44 | XR ---
EXAMINATION TYPE: XR knee complete RT DATE OF EXAM: 03/31/2021 COMPARISON: NONE HISTORY: Pain TECHNIQUE: Three views are submitted. FINDINGS: Moderate narrowing of the medial compartment knee joint with hypertrophic spurring. Mild narrowing of patellofemoral joint. Small amount suprapatellar bursal fluid. Osseous structures are intact. No acute fracture seen. IMPRESSION: 1. No acute fracture or dislocation. 2. Osteoarthritis.
== END | disposition home or self-care (01) ==
LOC: RADXRMAIN 15:25
PROVIDERS: ATTEND Nurse Practitioner Adult Health
DX: M17.11 Unilateral primary osteoarthritis, right knee (principal)

== ENCOUNTER → 2021-04-17 | Outpatient (CLI) | payer OTHER ==
[2021-04-17 09:48] VITALS: BP 116/83; PULSE 93; RESP 18; TEMP 98
--- NOTE | 2021-04-17 10:35 | P.PN ---
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 She underwent neoadjuvant chemotherapy which revealed complete pathologic response. She was enrolled on NSABP B 51 and randomized to observation instead of radiation therapy. She is doing well at this time with no complaints. She is planning to have bilateral breast reconstruction in the late fall at [facility]. This is to be done by DR. Blake. At this time the patient has no complaints related to her chest wall. He did develop a hematoma on the right mastectomy site which was aspirated in January but she states that this has not recurred. Family history: Paternal grandmother: Pancreatic cancer Paternal grandfather: Cancer Paternal uncle: Lung cancer Maternal aunt: Lung and brain cancer Internal cousin: Breast cancer Medical history: Hypertension Hypothyroid Surgical history: Bilateral mastectomy Cholecystectomy Eyelid surgery Orbital bone reconstruction Medical Port-A-Cath insertion Social history: Nicotine: Negative Alcohol: Occasional Drugs: Negative Objective - Vital Signs Vital signs: Vital Signs Temp 98.0 F 04/17/21 09:44 Pulse 93 04/17/21 09:44 Resp 18 04/17/21 09:44 BP 116/83 04/17/21 09:44 Pulse Ox 97 04/17/21 09:44 Intake & Output 04/16/21 04/17/21 04/17/21 18:59 06:59 18:59 Weight 86.183 kg - Exam BMI 33.7 - Constitutional General appearance: Present: average body habitus - EENT Eyes: Present: EOMI ENT: Present: hearing grossly normal - Neck Neck: Present: normal ROM - Respiratory Respiratory: bilateral: CTA - Cardiovascular Rhythm: regular Heart sounds: normal: S1, S2 - Gastrointestinal General gastrointestinal: Present: soft - Integumentary Integumentary Comment(s): Right chest wall: Incision clean and dry, fullness with a hematoma had been aspirated in the past but no definite recurrent mass Right axilla: No adenopathy of concern Left chest wall: Incision clean and dry no evidence of any disease Left axilla: No adenopathy of concern Assessment and Plan Assessment: Impression: 1. Patient status post bilateral mastectomy for stage IIIa right breast cancer 2. No evidence of recurrence on clinical examination Plan: 1. Chest wall ultrasound to rule out any evidence of recurrence 2. Follow-up after right breast ultrasound Radiation oncology note reviewed from [id number] CC: Kelly Alfaro
== END ==
LOC: WWCWWP 09:35
PROVIDERS: ATTEND Surgery
DX: Z08 Encounter for follow-up examination after completed treatment for malignant neoplasm (principal); Z90.13 Acquired absence of bilateral breasts and nipples; Z85.3 Personal history of malignant neoplasm of breast; I10 Essential (primary) hypertension; E03.9 Hypothyroidism, unspecified; Z79.890 Hormone replacement therapy; Z79.899 Other long term (current) drug therapy; Z88.8 Allergy status to other drugs, medicaments and biological substances

== ENCOUNTER → 2021-04-18 | Outpatient (CLI) | payer OTHER ==
--- NOTE | 2021-04-18 10:24 | USB ---
Reason for exam: clinical finding. History: Patient has history of breast cancer at age 45. Malignant US breast localization RT of the right breast, September 17, 2020. 2 mastectomies of both breasts, September 17, 2020. Malignant US biopsy breast VAD RT of the right breast, March 12, 2020. Malignant US biopsy breast add'l VAD RT of the right breast, March 12, 2020. Chemotherapy. Took hormonal contraceptives for 10 years beginning at age 16. Indicated problem(s): palpable abnormality in the right breast. Physical Findings: Nurse Summary: palpable lump (nurse dw). US Breast Limited RT Right limited breast ultrasound including focal area of concern, retroareolar and axilla demonstrates a 5.4 x 2.5 x 5.9cm oval, solid, hypoechoic lesion at chest along scar at BB. Heterogeneous fluid collection, no color flow, suggestive of hematoma, probably benign. These results were verbally communicated with the patient and result sheet given to the patient on 04/18/21. ASSESSMENT: Probably benign, BI-RAD 3 RECOMMENDATION: Ultrasound of the right breast in 6 months.
== END | disposition home or self-care (01) ==
LOC: RADUSWWP 08:33
PROVIDERS: ATTEND Surgery
DX: N64.59 Other signs and symptoms in breast (principal); Z85.3 Personal history of malignant neoplasm of breast

== ENCOUNTER → 2021-04-18 | Outpatient (CLI) | payer OTHER ==
[2021-04-18 09:18] VITALS: BP 120/78; PULSE 101; RESP 18; TEMP 98.2
--- NOTE | 2021-04-18 10:03 | P.PN ---
Progress Note - Text Progress Note Date: 04/18/21 Camryn underwent an ultrasound of the right chest wall today. Findings were consistent with resolving hematoma. There is not appear to be any evidence of recurrent malignancy. The patient was recommended to undergo repeat radiographic study in 6 months if it is any concern. The patient however is scheduled for reconstruction in June 2021. She will follow up with us after that.
== END ==
LOC: WWCWWP 08:36
PROVIDERS: ATTEND Surgery
DX: N64.89 Other specified disorders of breast (principal)

== ENCOUNTER → 2021-04-23 | Outpatient (CLI) | payer OTHER ==
[2021-04-23 16:35] LABS: African American GFR (CKD) >90 (>60 ml/min/1.73 sqM); Blood Urea Nitrogen 20 mg/dL (7-17); Non-African American GFR(CKD) >90 (>60 ml/min/1.73 sqM)
--- NOTE | 2021-04-24 07:49 | CT ---
EXAMINATION TYPE: CT abdomen w con DATE OF EXAM: 04/23/2021 HISTORY: Kidney cyst. CT DLP: 828.6mGycm Automated Exposure Control for Dose Reduction was Utilized. CONTRAST: CT scan of the abdomen is performed with oral and with IV Contrast, patient injected with 100 mL of I sovue M300. COMPARISON: CT abdomen and pelvis March 27, 2020 FINDINGS: LUNG BASES: Overlying breast expanders are present.. LIVER/GB: Gallbladder not seen presumed surgically absent similar to prior. PANCREAS: No significant abnormality is seen. SPLEEN: No significant abnormality is seen. ADRENALS: No significant abnormality is seen. KIDNEYS: Symmetric cortical medullary uptake and excretion without hydronephrosis seen bilaterally. T here is no through 3 mm calculus midpole of the right kidney coronal image 66. Fairly stable 1.4 cm b enign thin-walled cyst in the right kidney upper to midpole level laterally seen best series 9 image 29. No new solid or cystic mass identified. BOWEL: New small slight hiatal hernia. Oral contrast does not reach colonic level. Wandering cecum in to the central mid abdomen on current study. No suspicious small or large bowel dilatation. LYMPH NODES: No greater than 1cm abdominal lymph nodes are appreciated. OSSEOUS STRUCTURES: Mild disc space narrowing lumbosacral junction. Mild facet arthropathy lower lumb ar spine. OTHER: No significant additional abnormality is seen. IMPRESSION: Redemonstration of stable 1.4 cm benign thin-walled cyst right kidney. Hounsfield units m easure slightly higher than normal on prior CT due to volume averaging from adjacent enhancing renal cortex. Lesion is thought benign.
== END | disposition home or self-care (01) ==
LOC: RADCTMAIN 15:42
PROVIDERS: ATTEND Internal Medicine Hematology & Oncology
DX: N28.1 Cyst of kidney, acquired (principal)
CPT/HCPCS: 82565; 84520; 74160; 36415; Q9967 ×2

== ENCOUNTER → 2021-12-01 | Outpatient (CLI) | payer OTHER ==
--- NOTE | 2021-12-01 11:34 | MR ---
EXAMINATION TYPE: MR knee RT wo con DATE OF EXAM: 12/01/2021 COMPARISON: Plain film 10/29/2021 HISTORY: R knee pain TECHNIQUE: Multiplanar, multisequence imaging of the right knee is performed without IV contrast. FINDINGS: There is some motion on the exam. MEDIAL MENISCUS: Anterior and posterior horns are intact without tear. LATERAL MENISCUS: Anterior and posterior horns are intact without tear. CRUCIATE LIGAMENTS: The anterior and posterior cruciate ligaments are intact and unremarkable. COLLATERAL LIGAMENTS: The medial collateral ligament and lateral collateral ligament complex are inta ct and unremarkable. EXTENSOR MECHANISM: Visualized quadriceps and patellar tendons are intact. EFFUSION: There is a small suprapatellar joint effusion POPLITEAL CYST: No popliteal/peña cyst. 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 OTHER: Pretibial subcutaneous edema is present. Possible ganglion cyst present at the origin of the lateral belly of the gastrocnemius muscle IMPRESSION: Osteoarthritis. There is some motion on the exam.
== END | disposition home or self-care (01) ==
LOC: RADMRIMAIN 08:26
PROVIDERS: ATTEND Orthopaedic Surgery
DX: M25.561 Pain in right knee (principal); M17.11 Unilateral primary osteoarthritis, right knee

== ENCOUNTER → 2022-04-22 | Outpatient (CLI) | payer OTHER ==
--- NOTE | 2022-04-22 12:06 | MR ---
EXAMINATION TYPE: MR brain wo/w con DATE OF EXAM: 04/22/2022 COMPARISON: CT brain 11/17/2013 HISTORY: Headaches TECHNIQUE: Multiplanar, multisequence images of the brain and brainstem is performed without and with IV contras t, utilizing 9 mL intravenous Gadavist . FINDINGS: Diffusion weighted images demonstrate no evidence of a recent infarct or other diffusion ab normality. There is no extra-axial fluid collection or significant white matter signal abnormality, focal hypointensity in the right frontal white matter, axial image 14 measures only 3 to 4 mm, axial image 13 on the left shows a 4 mm focus, questionable clinical significance, additional lesion in the left frontal white matter axial image 17 in the subcortical region measures 6 mm. The ventricular s ystem and cisternal spaces are normal in size and appearance. The brain volume is age appropriate. Midline structures demonstrate normal morphology. The craniocervical junction appears within normal limits. Post contrast images demonstrate no abnormal enhancement. The dural venous sinuses appear pa tent. The visualized sinuses are clear and the globes are intact. IMPRESSION: Nonspecific white matter demyelination, findings could be related to migraine headaches, hypertension, vasculitis, Lyme disease, multiple sclerosis felt to be unlikely not excluded.
--- NOTE | 2022-04-22 15:28 | US ---
EXAMINATION TYPE: US abdomen complete DATE OF EXAM: 04/22/2022 COMPARISON: CLINICAL HISTORY: R10.84 ABD PAIN. Generalized pain and bloating. GB removed. EXAM MEASUREMENTS: Liver Length: 14.6 cm CBD: 0.3 cm Spleen: 9.1 cm Right Kidney: 9.5 x 4.4 x 4.4 cm Left Kidney: 11.8 x 3.9 x 4.8 cm Pancreas: Head and tail obscured by overlying bowel gas Liver: wnl Gallbladder: Surgically absent Evidence for sonographic Sandoval's sign: neg CBD: wnl Spleen: wnl Right Kidney: Superior lateral cystic lesion = 1.1 x 1.4 x 1.4 cm. Appears small in size compared t o contralateral kidney Left Kidney: Medial anechoic lesion at hilum = 1.4 x 0.9 cm Upper IVC: wnl Abd Aorta: No AAA visualized at time of scan IMPRESSION: 1. Bilateral hypoechoic areas within the kidneys may be cysts. Monitoring can be performed.
== END | disposition home or self-care (01) ==
LOC: RADUSWWP 08:09
PROVIDERS: ATTEND Internal Medicine Hematology & Oncology
DX: R51.9 Headache, unspecified (principal); R10.84 Generalized abdominal pain
CPT/HCPCS: 76700; 70553; A9585

== ENCOUNTER → 2022-06-18 | Outpatient (CLI) | payer OTHER ==
--- NOTE | 2022-06-19 16:20 | BD ---
EXAMINATION TYPE: Axial Bone Density DATE OF EXAM: 06/18/2022 COMPARISON: NONE CLINICAL HISTORY: 46 years year old Female. ICD-10 CODE: Z79.890 Post menopausal w/ HRT Height: 63 Weight: 201.6 FRAX RISK QUESTIONS: Alcohol (3 or more units per day): NO Family History (Parent hip fracture): NO Glucocorticoids (More than 3mos): NO History of Fracture in Adulthood: ORBIT Secondary Osteoporosis: 1. Type 1 Diabetes: NO 2. Hyperthyroidism: NO 3. Menopause before 45: NO 4. Malnutrition: NO 5. Chronic liver disease: NO Rheumatoid Arthritis: NO Current Tobacco Use: NO RISK FACTORS HISTORY OF: Hip Fracture (Right/Left): NO Spine Fracture: NO History of Wrist Fracture: NO Surgery to Spine/Hip(right/left)/Wrist (right/left): NO Family History of Osteoporosis: NO Active: NO Diet low in dairy products/other sources of calcium: NO Postmenopausal woman: YES Take estrogen and/or progesterone medications: NO Lost more than 2 inches in height since high school: NO Frequent falls: NO Poor Health: YES Hyperparathyroidism: YES Adrenal Insufficiency: NO MEDICATIONS: Prednisone or other steroids: NO Thyroid Medications: LEVOTHYROXIN How Long: SINCE 1998 Osteoporosis Medications: NO Additional Medications: BP MEDS, REFLUX MEDS, XANAX, FLEXERIL, VIT D, FISH OIL, Additional History: PREVIOUS BREAST CA. AGE 44 WITH CHEMO, PRIOR HYPER THYROID, THYROID WAS REMOVED I N 1997. EXAM MEASUREMENTS: Bone mineral densitometry was performed using the [employer] System. Bone mineral density as measured about the Lumbar spine is: ----- L1-L4(G/cm2): 1.153 T Score Values are as follows: ----- L1: -0.5 ----- L2: -0.7 ----- L3: -0.1 ----- L4: 0.0 ----- L1-L4: -0.2 BASELINE STUDY Bone mineral density about the R hip (g/cm2): 1.180 Bone mineral density about the L hip (g/cm2): 1.188 T Score values are as follows: -----R Neck: 1.0 -----L Neck: 1.1 -----R Total: 1.0 -----L Total: 1.1 BASELINE STUDY FRAX%s: The graph provided illustrates a 4.6% chance for a major osteoporotic fx and a 0.0% chance fo r the hips probability for fx in 10 years time. IMPRESSION: Normal (Values between +1 and -1 indicate normal bone mass). Consider repeating this study in 5 year s or sooner if there is some new clinical indication. NOTE: T-SCORE=SD OF THE YOUNG ADULT MEAN.
== END | disposition home or self-care (01) ==
LOC: RADBDWWP 10:17
PROVIDERS: ATTEND Internal Medicine Hematology & Oncology
DX: Z79.890 Hormone replacement therapy (principal)
CPT/HCPCS: 77080

== ENCOUNTER → 2022-07-13 | Outpatient (CLI) | payer OTHER ==
--- NOTE | 2022-07-14 02:30 | MR ---
EXAMINATION TYPE: MR hip RT wo/w con DATE OF EXAM: 07/13/2022 COMPARISON: None HISTORY: Right hip pain CONTRAST: Standard multiplanar, multisequence MRI departmental protocol images were obtained without contrast a nd with 9 ml mL intravenous Gadavist gadolinium contrast. The proximal femurs are intact. No evidence of any significant hip joint effusion. The pelvic ring ap pears intact. No focal bone destruction. Bladder distends smoothly. No free fluid in the pelvis. No e vidence of a pelvic mass. No evidence of avascular necrosis of the hip joint. Sacroiliac joints appea r intact. No evidence of a soft tissue mass. No sign of soft tissue edema. No pathologic fluid collec tion. The contrast images show no pathologic enhancement. No evidence of muscle edema. No presacral edema. IMPRESSION: Negative exam. I do not see a cause for right hip pain.
== END ==
LOC: RADMRIMAIN 17:29
PROVIDERS: ATTEND Internal Medicine Hematology & Oncology
DX: M25.551 Pain in right hip (principal)
CPT/HCPCS: 73723; A9585

== ENCOUNTER → 2022-07-29 | Outpatient (CLI) | payer OTHER ==
[2022-07-29 20:03] LABS: Anion Gap 11.2 mmol/L (10.00-18.00); Carbon Dioxide 23.8 mmol/L (20.0-27.5)
[2022-07-29 21:53] LABS: Basophils # (A) 0.03 X 10*3/uL (0.00-0.10); Basophils % (A) 0.5 %; Eosinophils # (A) 0.22 X 10*3/uL (0.04-0.35); Eosinophils % (A) 3.4 %; HGB 12.5 g/dL (12.0-15.0); Immature Grans, Automated 0.5 %; Lymphocytes # (A) 2.27 X 10*3/uL (0.90-5.00); Lymphocytes % (A) 35.2 %; MCH 28.6 pg (27.0-32.0); MCHC 32.1 g/dL (32.0-37.0); MCV 89.2 fL (80.0-97.0); Mean Platelet Volume 11.1 fL (9.5-12.2); Monocytes # (A) 0.41 X 10*3/uL (0.20-1.00); Monocytes % (A) 6.4 %; NRBC Per 100 WBC 0 /100 WBCS (0.0-0.0); Neutrophils # (A) 3.49 X 10*3/uL (1.80-7.70); Platelet Count 247 X 10*3/uL (140-440); RBC 4.37 X 10*6/uL (4.10-5.20); RDW 15.6 % (11.5-14.5); WBC 6.45 X 10*3/uL (4.50-10.00)
== END | disposition home or self-care (01) ==
LOC: LABPAT 13:54
PROVIDERS: ATTEND Orthopaedic Surgery
DX: Z01.812 Encounter for preprocedural laboratory examination (principal); M23.91 Unspecified internal derangement of right knee
CPT/HCPCS: 80051; 85025

== ENCOUNTER 2022-08-12 07:51 | Day surgery (SDC) | payer OTHER ==
[2022-08-11 09:03] VITALS: BMI 33.5
--- NOTE | 2022-08-12 02:57 | HP ---
HISTORY AND PHYSICAL DATE OF SURGERY: 08/12/2022. HISTORY OF PRESENT ILLNESS: Camryn Lott is a 46-year-old patient, seen with progressive right knee pain. Options for treatment were discussed with her. She elected to proceed with right knee arthroscopy. Consent was obtained. PAST MEDICAL HISTORY: Hypothyroidism, hypertension, and osteoarthritis. PAST SURGICAL HISTORY: Cholecystectomy, mastectomy, and orbital surgery. DAILY MEDICATIONS: 1. Losartan. 2. Omeprazole. 3. Synthroid. 4. Xanax. 5. Vitamins. ALLERGIES: Compazine. SOCIAL HISTORY: She denies tobacco use. PHYSICAL EVALUATION OF THE RIGHT KNEE: Her range of motion is 0 to 130. Mild effusion. Tenderness in medial joint line. Positive medial Latoya's. Ligaments stable. Hip rotation without pain. Distal neurovascular exam is intact. RADIOGRAPHS: Right knee radiographs reveal moderate osteoarthritis. MRI of right knee revealed grade 4 chondromalacia in medial compartment. IMPRESSION: 1. Internal derangement of right knee with osteochondral tear. 2. Hypertension. 3. Hypothyroidism. PLAN: Right knee arthroscopy with chondroplasty and debridement. MMODL / IJN: [id number] /
[~2022-08-12 07:51] MED LIST changes: -DEXAMETHASONE SOD PHOSPHATE 10 MG/ML 1 ML VIAL IV ONE; +DEXAMETHASONE SOD PHOSPHATE 4 MG/ML 1 ML VIAL IV ONE; -HEPARIN SODIUM,PORCINE 5,000 UNIT/ML 1 ML VIAL SQ ONE; -MIDAZOLAM 2 MG/2 ML VIAL IV PRN; -Pre Op ABX Message 1 EACH MISC MISCELLANE ONE
[2022-08-12] MEDS ORDERED: SCOPOLAMINE 1 MG/72 HR PATCH TRANSDERM ONE (08:37)
[2022-08-12] MEDS ORDERED: BUPIVACAINE (PF) 0.25% 30 ML VIAL SQ ONE ×2 (09:09→10:01)
[2022-08-12] MEDS ORDERED: MIDAZOLAM 2 MG/2 ML VIAL ONE (09:26)
[2022-08-12] MEDS ORDERED: LIDOCAINE 2% INJ 20 MG/ML (2 ML VIAL) ONE (09:26)
[2022-08-12] MEDS ORDERED: SUCCINYLCHOLINE CHLORIDE 200 MG/10 ML VIAL IV ONE (09:26)
[2022-08-12] MEDS ORDERED: ePHEDrine 50 MG/ML 1 ML VIAL ONE (09:26)
[2022-08-12] MEDS ORDERED: ALBUTEROL HFA INHALER INHALATION ONE (09:26)
[2022-08-12] MEDS ORDERED: PROPOFOL 10 MG/ML 20 ML VIAL IV ONE (09:26)
[2022-08-12] MEDS ORDERED: fentaNYL (PF) 50 MCG/ML 2 ML AMP ONE (09:26)
--- NOTE | 2022-08-12 10:19 | P.OP ---
Date of Procedure: 08/12/22 Preoperative Diagnosis: Internal derangement right knee Postoperative Diagnosis: 1. Tear medial and lateral meniscus right knee 2. Grade 4 chondromalacia medial femoral condyle right knee 3. Grade 2/3 chondromalacia patella right knee 4. Reactive synovitis medial, lateral and suprapatellar compartments right knee Procedure(s) Performed: 1. Arthroscopic partial medial and lateral meniscectomy right knee 2. Arthroscopic microfracture medial femoral condyle right knee 3. Arthroscopic chondroplasty medial femoral condyle right knee 4. Arthroscopic chondroplasty patella right knee 5. Arthroscopic partial synovectomy medial, lateral and suprapatellar compartments right knee Anesthesia: GETA, regional (Interscalene block) Surgeon: Brad Garcia Estimated Blood Loss (ml): 7 Pathology: none sent Condition: stable Disposition: PACU Indications for Procedure: 46-year-old patient seen with progressive right knee pain. After treatment options were discussed, she elected to proceed with arthroscopy. Operative Findings: see description of procedure Description of Procedure: Patient was taken to the operative suite. Patient underwent a general anesthetic by the department of anesthesia. Patient was given preoperative antibiotics. The right lower extremity was placed in a well-padded arthroscopic leg arana. The right leg was prepped and draped in the normal sterile orthopedic fashion. A lateral parapatellar and suprapatellar incision was made. Trochars were inserted. Arthroscopy was initiated. Suprapatellar pouch revealed diffuse thick reactive synovitis. The patellofemoral joint appeared to articulate congruently. There was grade 2/3 chondromalacia of the patella with some osteochondral flap tears present. The scope was guided into the medial gutter. No loose bodies or plica were identified. The scope was then guided into the medial compartment. A medial parapatellar incision was made. Trocar inserted followed by probe. There was a radial tear posterior horn medial meniscus. There were grade 4 chondromalacia changes of the medial femoral condyle and tibial plateau with areas of exposed bone. There was thick reactive synovitis anteriorly. I performed a partial medial meniscectomy. I performed a chondroplasty of the femoral condyle. I performed a microfracture of the medial femoral condyle penetrating the bone with resultant bleeding at the microfracture sites. I performed a partial synovectomy decompressing the thick reactive synovitis anteriorly. The residual meniscus was found to be stable. The residual osteochondral surface was stable. We again noted grade 4 chondromalacia with exposed bone. Along the femoral condyle measured 3 cm x 1 cm in the tibial plateau measuring approximately 1 cm in diameter. Scope and probe were then guided into the intercondylar notch. Cruciates were identified, probed and found to be stable. The scope and probe were then guided into lateral compartment. There was a radial tear anterior horn lateral meniscus. There were grade 1 chondromalacia changes lateral compartment. There was thick reactive some-itis anteriorly. I performed a partial lateral meniscectomy. I performed a partial synovectomy. The residual meniscus was stable. There was good decompression of synovitis. The scope was in guided back into the suprapatellar compartment. I introduced a motorized shaver into the super patellar compartment. I debrided some piecemeal fragments of meniscus that I encountered. I performed a chondroplasty the patella. I performed a partial synovectomy. The residual osteochondral surface of the patella was stable. There was good decompression of the synovitis. Instruments were now removed from the joint. The joint was infiltrated with .25% Marcaine. Steri-Strips were applied to the portal sites. Sterile dressings were applied. The patient was placed into a DIAZ hose. No tourniquet was utilized. The patient was awakened, transferred to a bed and taken to recovery stable satisfactory condi tion.
[2022-08-12 10:28] VITALS: TEMP 97.8
[2022-08-12] MEDS: HYDROmorphone 0.5 MG/0.5 ML SYRINGE IVP PRN ×3 (10:32→11:10)
[2022-08-12] MEDS ORDERED: KETOROLAC 15 MG/ML 1 ML VIAL IVP ONE (11:10)
[2022-08-12 11:58] VITALS: RESP 16
[2022-08-12 12:19] VITALS: BP 107/73; PULSE 76
== END 2022-08-12 12:29 | disposition home or self-care (01) ==
LOC: OR 07:51
PROVIDERS: ATTEND Orthopaedic Surgery
DX: M23.300 Other meniscus derangements, unspecified lateral meniscus, right knee (principal); M23.303 Other meniscus derangements, unspecified medial meniscus, right knee; M22.41 Chondromalacia patellae, right knee; M65.861 Other synovitis and tenosynovitis, right lower leg; M25.561 Pain in right knee; M25.461 Effusion, right knee; M17.11 Unilateral primary osteoarthritis, right knee; I10 Essential (primary) hypertension; E03.9 Hypothyroidism, unspecified; E66.9 Obesity, unspecified; K21.9 Gastro-esophageal reflux disease without esophagitis; Z91.040 Latex allergy status; Z88.6 Allergy status to analgesic agent; Z90.11 Acquired absence of right breast and nipple; Z90.49 Acquired absence of other specified parts of digestive tract
CPT/HCPCS: 29880; J2250; J0330; J1100; J0690; J2405; J3010; J1885; J2704; J1170; J2001

== ENCOUNTER → 2022-12-17 | Outpatient (CLI) | payer OTHER ==
[2022-12-17 14:50] LABS: Basophils # (A) 0.05 X 10*3/uL (0.00-0.10); Basophils % (A) 0.8 %; Eosinophils # (A) 0.16 X 10*3/uL (0.04-0.35); Eosinophils % (A) 2.4 %; HCT 41.4 % (37.2-46.3); HGB 13.3 g/dL (12.0-15.0); Immature Grans, Automated 0.3 %; Lymphocytes # (A) 2.66 X 10*3/uL (0.90-5.00); Lymphocytes % (A) 40.1 %; MCH 30.7 pg (27.0-32.0); MCHC 32.1 g/dL (32.0-37.0); MCV 95.6 fL (80.0-97.0); Mean Platelet Volume 11.1 fL (9.5-12.2); Monocytes # (A) 0.42 X 10*3/uL (0.20-1.00); Monocytes % (A) 6.3 %; NRBC Per 100 WBC 0 /100 WBCS (0.0-0.0); Neutrophils # (A) 3.32 X 10*3/uL (1.80-7.70); Neutrophils % (A) 50.1 %; Platelet Count 251 X 10*3/uL (140-440); RBC 4.33 X 10*6/uL (4.10-5.20); RDW 13.6 % (11.5-14.5); WBC 6.63 X 10*3/uL (4.50-10.00)
[2022-12-17 16:55] LABS: ALT 20 U/L (8-44); AST 26 U/L (13-35); African American GFR (CKD) 99.9 (60.0-200.0); Albumin 4.5 g/dL (3.8-4.9); Albumin/Globulin Ratio 1.64 (1.60-3.17); Alkaline Phosphatase 71 U/L (41-126); BUN/Creat Ratio 27.09 Ratio (12.00-20.00); Calcium 10.2 mg/dL (8.7-10.3); Carbon Dioxide 24.6 mmol/L (20.0-27.5); Chloride 104 mmol/L (96-109); Chol/HDL Ratio 3.95 Ratio; Ferritin 38.3 ng/mL (10.0-291.0); Globulin 2.8 g/dL (1.6-3.3); Glucose 98 mg/dL (70-110); LDL Cholesterol,Calculated 149.8 mg/dL (0.0-131.0); Magnesium 2.2 mg/dL (1.5-2.4); Non-African American GFR(CKD) 86.2 (60.0-200.0); Potassium 4.5 mmol/L (3.5-5.5); Sodium 141 mmol/L (135-145); Total Protein 7.3 g/dL (6.2-8.2); VLDL Calculation 16.82 mg/dL (5.00-40.00)
[2022-12-17 17:16] LABS: Thyroid Peroxidase Antibodies 13.9 U/mL (0.0-33.0)
[2022-12-17 19:12] LABS: Cancer Antigen 125 18.8 U/mL (0.0-30.1)
[2022-12-17 19:32] LABS: Cancer Antigen 153 20.3 U/mL (0.0-32.3)
[2022-12-17 20:18] LABS: Cancer Antigen 19-9 13.3 U/mL (0.0-34.9)
== END | disposition home or self-care (01) ==
LOC: LABWHC1 08:12
PROVIDERS: ATTEND Nurse Practitioner Adult Health
DX: E05.00 Thyrotoxicosis with diffuse goiter without thyrotoxic crisis or storm (principal); E66.8 Other obesity; E06.3 Autoimmune thyroiditis; R97.1 Elevated cancer antigen 125 [CA 125]; E55.9 Vitamin D deficiency, unspecified
CPT/HCPCS: 36415; 80053; 80061; 82306; 82397; 82525; 82533; 82607; 82728; 82746; 83036; 83090; 83525; 83695; 83735; 83970; 84432; 84439; 84443; 84481; 84630; 85025; 86141; 86300; 86301; 86304; 86376

== ENCOUNTER → 2022-12-29 | Outpatient (CLI) | payer OTHER ==
[2022-12-29 18:39] LABS: Basophils # (A) 0.05 X 10*3/uL (0.00-0.10); Basophils % (A) 0.7 %; Eosinophils # (A) 0.18 X 10*3/uL (0.04-0.35); Eosinophils % (A) 2.4 %; HCT 38.7 % (37.2-46.3); HGB 12.1 g/dL (12.0-15.0); Immature Grans, Automated 0.4 %; Lymphocytes % (A) 35.9 %; MCH 30.4 pg (27.0-32.0); MCHC 31.3 g/dL (32.0-37.0); MCV 97.2 fL (80.0-97.0); Mean Platelet Volume 10.7 fL (9.5-12.2); Monocytes # (A) 0.51 X 10*3/uL (0.20-1.00); Monocytes % (A) 6.8 %; NRBC Per 100 WBC 0 /100 WBCS (0.0-0.0); Neutrophils # (A) 4.06 X 10*3/uL (1.80-7.70); Neutrophils % (A) 53.8 %; Platelet Count 260 X 10*3/uL (140-440); RBC 3.98 X 10*6/uL (4.10-5.20); RDW 14.1 % (11.5-14.5); WBC 7.53 X 10*3/uL (4.50-10.00)
[2022-12-29 19:10] LABS: Albumin 4.6 g/dL (3.8-4.9); Albumin/Globulin Ratio 1.82 (1.60-3.17); Anion Gap 10.2 mmol/L (10.00-18.00); BUN/Creat Ratio 25.53 Ratio (12.00-20.00); Blood Urea Nitrogen 19.3 mg/dL (9.0-27.0); Calcium 10.6 mg/dL (8.7-10.3); Carbon Dioxide 27.8 mmol/L (20.0-27.5); Globulin 2.5 g/dL (1.6-3.3); Potassium 4.9 mmol/L (3.5-5.5); Total Bilirubin 0.3 mg/dL (0.30-1.20); Total Protein 7.1 g/dL (6.2-8.2)
== END | disposition home or self-care (01) ==
LOC: LABWHC1 12:38
PROVIDERS: ATTEND Nurse Practitioner Family
DX: C50.411 Malignant neoplasm of upper-outer quadrant of right female breast (principal); Z17.1 Estrogen receptor negative status [ER-]; D64.9 Anemia, unspecified
CPT/HCPCS: 36415; 80053; 82607; 82728; 82746; 83540; 85025

== ENCOUNTER 2023-07-14 11:06 | Day surgery (SDC) | payer OTHER ==
[2023-07-06 12:33] VITALS: BMI 30.1
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
[~2023-07-14 11:06] MED LIST changes: +HYDROmorphone 0.5 MG/0.5 ML SYRINGE IVP PRN; +droPERidol 5 MG/2 ML VIAL IVP ONE
[2023-07-14 11:49] VITALS: RESP 16; TEMP 97.1
[2023-07-14] MEDS ORDERED: SCOPOLAMINE 1 MG/72 HR PATCH TRANSDERM ONE (11:50)
[2023-07-14] MEDS ORDERED: fentaNYL (PF) 50 MCG/ML 2 ML AMP IVP ONE (12:55)
[2023-07-14] MEDS ORDERED: MIDAZOLAM 2 MG/2 ML VIAL IVP ONE (12:55)
[2023-07-14] MEDS ORDERED: DEXAMETHASONE SOD PHOSPHATE 4 MG/ML 1 ML VIAL ONE (13:05)
[2023-07-14] MEDS ORDERED: MIDAZOLAM 2 MG/2 ML VIAL ONE (13:05)
[2023-07-14] MEDS ORDERED: PROPOFOL 10 MG/ML 20 ML VIAL IV ONE (13:05)
[2023-07-14] MEDS ORDERED: ROPIVACAINE 5 MG/ML 30 ML VIAL ONE (13:05)
[2023-07-14] MEDS ORDERED: fentaNYL (PF) 50 MCG/ML 2 ML AMP ONE (13:05)
--- NOTE | 2023-07-14 13:05 | P.ANPRN ---
Procedure Note - Anesthesia - Nerve Block Performed Left Axillary Single Date of Procedure: 07/14/23 Procedure Start Time: 12:54 Procedure Stop Time: 13:02 Location of Patient: PreOp Indication: Acute Post-Operative Pain, Dx/Pain Location (Left thumb), Requested by Surgeon Specifically requested for management of pain by DrJosefa: Kevin Laws Sedation Type: Sedate with meaningful contact maintained Preparation: Sterile Prep Position: Supine Catheter: None Needle Types: Pajunk Needle Gauge: 21 (50 mm) Ultrasound used to visualize needle placement: Yes Ultrasound used to observe medication spread: Yes Injectate: 0.5% Ropivacaine (see comment for volume) (30 mL/Decadron 4 mg)
--- NOTE | 2023-07-14 13:55 | P.OP ---
Date of Procedure: 07/14/23 Preoperative Diagnosis: Left thumb CMC arthritis Postoperative Diagnosis: Left thumb CMC arthritis Procedure(s) Performed: Left thumb CMC basilar joint arthroplasty Anesthesia: MAC, regional Surgeon: Kevin Laws Customer Care Assistant #1: Deshaun Bañuelos Estimated Blood Loss (ml): 0 Pathology: none sent Condition: stable Disposition: PACU Description of Procedure: This is a 47 year old female who presents today for a left thumb CMC basal joint arthroplasty after having failed conservative treatment for severe thumb CMC arthritis. Risks and benefits of surgery were discussed with the patient including bleeding, damage to surrounding tissue, infection, need for further surgery as well as risks of anesthesia including pulmonary embolism and even and the patient wished to proceed with surgical intervention. The patients was seen in the pre-operative area by myself. Consent and H&P were completed and updated. The correct extremity was marked in the pre-operative area by myself and all other questions were answered. Patient received a upper extremity nerve block by the department of anesthesia. He then was brought to the operating room by the department of anesthesia. They remained on the portable stretcher and a rolling hand table was brought to the side of the operative extremity. The patient was then drifted off to sleep by the department of anesthesia. A nonsterile tourniquet was then applied to the operative extremity and the left upper extremity was then prepped and draped in normal sterile fashion. Pre-operative time out was performed indicating the correct patient, procedure and laterality. All in the room agreed. Pre-operative antibiotics were given prior to skin incision. The operative extremity was the exsanguinated with an esmarch bandage and the tourniquet was inflated to 250mmHg. Longitudinal incision was made over the left thumb CMC joint with a 15 blade scalpel. Blunt dissection was taken down to subcutaneous tissues with littler scissors taking care to preserve the branches of the superficial radial nerve. Dorsal radial artery was identified proximally in the incision and protected throughout the procedure. Scalpel was then made to incise the thumb CMC joint creating full thickness flaps off of the proximal metacarpal base and trapezium, this plane was further developed with a periosteal elevator. Elevator was then utilized to identify the thumb CMC joint and scaphotrapezial joint. McGlamory elevator was then used to excise the trapezium whole. Guidewire was then introduced down to the laser line at the base of the first metacarpal through the same incision and was over drilled. Another guidewire was then inserted at the radial base of the first metacarpal near the Insertion of APL and was then over drilled with normal drill guide. A 3.5mm Arthrex SwiveLock anchor was then inserted into the base of the first metacarpal. While holding the thumb in slight traction and full adduction, another 3.5mm Arthrex SwiveLock anchor was inserted into the base of the second metacarpal and the two strands of fibertape were centered across the first metacarpal base to create a sling around the base suspending the thumb metacarpal, good viv purchase was appreciated. The thumb was successfully suspended and full ROM was achieved passively. Suture ends were cut and skin was closed with several interrupted 4-0 Monocryl sutures followed by a running 4-0 Monocryl stitch. Sterile dressing consisting of mastisol and steri strips followed by 4x4s cast padding, and a thumb spica plaster splint was applied. Tourniquet was let down and the hand had brisk cap refill and normal perfusion immediately. The patient was then woken by the department of anesthesia and transferred to PACU in stable condition. Deshaun CHAPMAN was present for the case and assisted in major portions of procedure and protection of vital neurovascular structures. Kevin Laws D.O. Orthopedic Hand/Upper Extremity Surgeon
[2023-07-14 14:36] VITALS: BP 168/89; PULSE 74
== END 2023-07-14 15:01 | disposition home or self-care (01) ==
LOC: OR 11:06
PROVIDERS: ATTEND Orthopaedic Surgery Hand Surgery
DX: M18.12 Unilateral primary osteoarthritis of first carpometacarpal joint, left hand (principal); K21.9 Gastro-esophageal reflux disease without esophagitis; E07.9 Disorder of thyroid, unspecified; I10 Essential (primary) hypertension; Z79.899 Other long term (current) drug therapy; Z85.3 Personal history of malignant neoplasm of breast; Z79.890 Hormone replacement therapy; Z88.8 Allergy status to other drugs, medicaments and biological substances
CPT/HCPCS: 25447; 81025; 64415; J2250; J1100; J0690; J2405; J3010; J2795; J2704

== ENCOUNTER → 2025-05-21 | Outpatient (CLI) | payer OTHER ==
[2025-05-21 16:21] LABS: INR 0.9 (<1.2); Prothrombin Time 10.4 sec (10.0-12.5)
[2025-05-21 19:04] LABS: HCT 38.1 % (37.2-46.3); HGB 12.2 g/dL (12.0-15.0); MCV 96.7 FL (80.0-97.0); Mean Platelet Volume 9.9 FL (9.5-12.2); NRBC Per 100 WBC 0 X 10*3/uL (0.00-0.01); Platelet Count 259 X 10*3/uL (140-440); RBC 3.94 X 10*6/uL (4.10-5.20); RDW 12.1 % (11.5-14.5); WBC 7.79 X 10*3/uL (4.50-10.00)
[2025-05-21 19:05] LABS: Basophils # (A) 0.04 X 10*3/uL (0.00-0.10); Basophils % (A) 0.5 %; Eosinophils % (A) 3.9 %; Lymphocytes # (A) 2.74 X 10*3/uL (0.90-5.00); Lymphocytes % (A) 35.2 %; Monocytes # (A) 0.61 X 10*3/uL (0.20-1.00); Monocytes % (A) 7.8 %; Neutrophils # (A) 4.04 X 10*3/uL (1.80-7.70); Neutrophils % (A) 51.8 %
[2025-05-21 19:41] LABS: Blood Urea Nitrogen 10.9 mg/dL (9.0-27.0); Calcium 10.1 mg/dL (8.7-10.3); Carbon Dioxide 27.3 mmol/L (21.6-31.8); Chloride 106 mmol/L (96-109); Glucose 73 mg/dL (70-110); Sodium 141 mmol/L (135-145)
== END | disposition home or self-care (01) ==
LOC: LABPAT 15:21
PROVIDERS: ATTEND Orthopaedic Surgery
DX: Z01.818 Encounter for other preprocedural examination (principal); Z22.322 Carrier or suspected carrier of Methicillin resistant Staphylococcus aureus; M17.11 Unilateral primary osteoarthritis, right knee
CPT/HCPCS: 80048; 85025; 85610; 87070; 93005

== ENCOUNTER 2025-05-28 05:55 | Inpatient (IN) | payer OTHER ==
[2025-05-21 16:10] VITALS: BMI 31.8
--- NOTE | 2025-05-27 13:59 | HP ---
HISTORY AND PHYSICAL Surgery is scheduled for 05/28/2025. HISTORY OF PRESENT ILLNESS: Camryn Lott is a 49-year-old patient, seen with symptomatic right knee osteoarthritis. We discussed options. She elected to proceed with right total knee arthroplasty. Consents obtained. PAST MEDICAL HISTORY: Hypertension, hypothyroidism. PAST SURGICAL HISTORY: Cholecystectomy, mastectomy, orbital surgery. DAILY MEDICATIONS: Cymbalta, losartan, Synthroid, Xanax. ALLERGIES: Compazine. SOCIAL HISTORY: She denies tobacco use. PHYSICAL EVALUATION OF THE RIGHT KNEE: Range of motion is negative to 120 degrees. Mild effusion. Tenderness, medial joint line. Crepitus, medial patellofemoral compartments with range of motion. There is some pain with patellofemoral compression. Ligaments stable. Hip rotation without pain. Distal neurovascular exam is intact. IMAGING STUDIES: Right knee radiographs reveal severe osteoarthritic changes. IMPRESSION: 1. Right knee osteoarthritis. 2. Hypertension. 3. Hypothyroidism. PLAN: Right total knee arthroplasty. MMODL / IJN: [id number] /
[~2025-05-28 05:55] MED LIST changes: -DEXAMETHASONE SOD PHOSPHATE 4 MG/ML 1 ML VIAL IV ONE; -HYDROmorphone 0.5 MG/0.5 ML SYRINGE IVP PRN; -LACTATED RINGERS 1,000 ML IV SCH; -LIDOCAINE 1% (10MG/ML) FOR IV START INTRADERMA PRN; -ONDANSETRON 4 MG/2 ML VIAL IVP ONE; +TRANEXAMIC 1,000 MG/100ML-NACL 1,000 MG in SALINE 1 100ML.BAG IVPB PRN; -droPERidol 5 MG/2 ML VIAL IVP ONE
[2025-05-28] MEDS: IV FLUID CONTINUATION 1,000 ML IV ONE (06:23)
[2025-05-28] MEDS ORDERED: LIDOCAINE 1% (10MG/ML) FOR IV START INTRADERMA PRN (06:38)
[2025-05-28] MEDS: MIDAZOLAM 2 MG/2 ML VIAL IV ONE (06:55)
[2025-05-28] MEDS: ACETAMINOPHEN TAB 500 MG TAB PO PRN (07:33)
[2025-05-28] MEDS ORDERED: MIDAZOLAM 2 MG/2 ML VIAL ONE (07:33)
[2025-05-28] MEDS ORDERED: DEXAMETHASONE SOD PHOSPHATE 4 MG/ML 1 ML VIAL ONE (07:33)
[2025-05-28] MEDS ORDERED: PROPOFOL 10 MG/ML 20 ML VIAL IV ONE (07:33)
[2025-05-28] MEDS ORDERED: fentaNYL (PF) 50 MCG/ML 2 ML AMP ONE (07:33)
[2025-05-28] MEDS ORDERED: TRANEXAMIC 1,000 MG/100ML-NACL PREMIX BAG ONE (07:33)
[2025-05-28] MEDS: MELOXICAM 7.5 MG TAB PO PRN (07:33)
[2025-05-28] MEDS ORDERED: diphenhydrAMINE 50 MG/ML 1 ML VIAL ONE (07:33)
[2025-05-28] MEDS ORDERED: ROPIVACAINE 5 MG/ML 30 ML VIAL ONE (07:33)
[2025-05-28] MEDS ORDERED: LIDOCAINE 1% INJ 10MG/ML (20 ML MDV) ONE (07:33)
[2025-05-28] MEDS: LACTATED RINGERS 1,000 ML IV SCH ×2 (07:36→13:00)
[2025-05-28] MEDS: ONDANSETRON 4 MG/2 ML VIAL IVP ONE (07:37)
[2025-05-28] MEDS: DEXAMETHASONE SOD PHOSPHATE 4 MG/ML 1 ML VIAL IVP STA (07:38)
[2025-05-28] MEDS: SCOPOLAMINE 1 MG/72 HR PATCH TRANSDERM STA (07:42)
[2025-05-28] MEDS: ceFAZolin 1,000 MG in SODIUM CHLORIDE 0.9% 1,000 ML IRRIGATION ONE (08:02)
[2025-05-28] MEDS: LACTATED RINGERS 1,000 ML IV ONE (09:24)
[2025-05-28] MEDS ORDERED: NALOXONE 0.4 MG/ML 1 ML VIAL IV PRN (09:38)
[2025-05-28] MEDS ORDERED: HYDROmorphone 0.5 MG/0.5 ML SYRINGE IVP PRN (09:38)
[2025-05-28] MEDS ORDERED: ONDANSETRON 4 MG/2 ML VIAL IVP PRN (09:38)
[2025-05-28] MEDS ORDERED: HYDROcodone/APAP 5-325MG 1 EACH TAB PO PRN (09:38)
--- NOTE | 2025-05-28 09:38 | P.OP ---
Date of Procedure: 05/28/25 Preoperative Diagnosis: Right knee osteoarthritis Postoperative Diagnosis: Right knee osteoarthritis Procedure(s) Performed: Right total knee arthroplasty Implants: 1. DePuy attune size 5 narrow right cruciate retaining cemented femur 2. DePuy attune size 4 fixed-bearing cemented tibial baseplate 3. DePuy attune size 5 fixed-bearing cruciate retaining 10 mm polyethylene tibial insert 4. DePuy attune 32 mm all polyethylene cemented patella Anesthesia: regional (Adductor canal catheter, iPAQ block), spinal Surgeon: Brad Garcia Bridge Carpenter #1: Carlos Harrington Estimated Blood Loss (ml): 40 Pathology: none sent Condition: stable Disposition: PACU Indications for Procedure: 49-year-old patient seen with progressive symptomatic right knee osteoarthritis. After having treatment options discussed, she elected to proceed with right total knee arthroplasty. Operative Findings: See description of procedure Description of Procedure: Patient was taken to the operative suite after having an adductor canal catheter placed by the department of anesthesia. Patient underwent a spinal anesthetic by the department of anesthesia. Patient was given preoperative IV intake antibiotics and TXA. A well-padded tourniquet was placed about the right lower extremity. The lower extremity was then prepped and draped in the normal sterile orthopedic fashion. The extremity was elevated, a tourniquet was insufflated to 300. A standard anterior incision was made sharply through skin. Dissection was taken down through the subcutaneous soft tissues down to the extensor mechanism. A medial arthrotomy was performed, patella was everted and knee was flexed. There was advanced osteoarthritis noted. I introduced my distal intramedullary femoral drill. I then introduced the distal femoral cutting jig. Jerrod CHAPMAN secured the cutting jig with 2 pins. I held retractors in position while Jerrod CHAPMAN performed the distal femoral resection through the guide area we now removed her distal femoral cutting guide. We now placed our 4-in-1 femoral cutting block and positioned and it was secured with 2 pins by Jerrod CHAPMAN while I held the block in position. The distal femoral finishing was now completed. A proximal tibial cutting guide was positioned. I held the guide in the appropriate position with both hands well Jerrod CHAPMAN inserted stabilizing pins into the guide. Proximal tibial cut was made. We now placed a trial femoral component into position, along with an appropriate size tibial tray and insert. We now took the knee through range of motion and had full extension good flexion and good overall soft tissue balance noted. The patella was everted and stabilized with 2 towel clips held by Jerrod CHAPMAN while I performed a flush with patellar quad tendon utilizing a fresh sawblade. We templated the patella, appropriate drill holes were made. An appropriate trial patella was positioned, knee was taken through full range of motion with the patella tracking very nicely. The trial patella was removed. Drill holes were made through the femoral component. All trial components were removed after marking off the appropriate rotation of the tibia. Retractors were now positioned along the proximal tibia. An appropriate keel punch was made with the appropriate size tibial guide by myself on Jerrod CHAPMAN assisted by holding retractors. At this point appropriate size implants were chosen and opened. The joint was irrigated copiously with pulse lavage mechanical irrigation. The wound was irrigated with pulse lavage mechanical irrigation. We mixed antibiotic methylmethacrylate. We placed the knee into flexion. We placed multiple retractors assisted by Jerrod CHAPMAN to expose the proximal tibia. Once the methyl methacrylate was ready, the tibial component was cemented into place removing any excess methylmethacrylate form by both myself and Jerrod CHAPMAN. The femoral component was cemented into place removing the removing any excess methylmethacrylate performed by both myself and Jerrod CHAPMAN. We then inserted the appropriate size polyethylene tibial insert. We made sure that it was locked into position. We took the knee into full extension, and then back in a flexion making sure we had removed any excess methylmethacrylate. The patellar component was then cemented down and secured with clamp. Excess methylmethacrylate removed. We kept the knee in full extension, patellar clamp in position until methylmethacrylate had hardened. Once it had hardened the patellar clamp was removed. The knee was taken through full range of motion. The patella tracked nicely. There was good soft tissue balancing. The tourniquet was now released. Additional hemostasis was achieved via electrocautery. A second gram of TXA was given. The wound again was irrigated with pulse lavage mechanical irrigation. The extensor mechanism was repaired with Ethibond suture. We checked the repair with range of motion and it was stable. The subcutaneous soft tissues were repaired with Vicryl in layers. The skin was approximated with pernio/Dermabond. Sterile dressings were applied followed by loose web roll and Garcia bandage. The patient was transferred to a bed, and taken to recovery in stable and satisfactory condition. Jerrod CHAPMAN assisted with this complex procedure.
[2025-05-28] MEDS: ROPIVACAINE 1,100 MG, SODIUM CHLORIDE 0.9% 500 ML 330 ML, EMPTY PAIN BALL 1 EACH MISCELLANE PRN (10:06)
--- NOTE | 2025-05-28 10:45 | XR ---
EXAMINATION TYPE: XR knee limited RT DATE OF EXAM: 05/28/2025 10:08 AM COMPARISON: None. CLINICAL INDICATION: Female, 49 years old with history of post-op, pain TECHNIQUE: Portable AP and crosstable lateral views of the right right knee are obtained immediately postoperatively. FINDINGS: Metallic hardware from total right right knee arthroplasty is seen and appears satisfacto ry in alignment and position. There is evidence of recent surgery with diffuse subcutaneous gas , ve rtical skin beverly, and percutaneous suprapatellar surgical drain noted. IMPRESSION: METALLIC HARDWARE FROM TOTAL right right KNEE ARTHROPLASTY IS SATISFACTORY IN ALIGNMENT. [facility], , 05/28/2025 10:43 AM
[2025-05-28] MEDS: HYDROmorphone 0.5 MG/0.5 ML SYRINGE IVP PRN ×2 (10:48→16:34)
[2025-05-28] MEDS: droPERidol 2.5 MG/ML VIAL IVP STA (11:17)
[2025-05-28] MEDS: HYDROcodone/APAP 7.5-325MG 1 EACH TAB PO PRN (13:39)
--- NOTE | 2025-05-28 14:18 | P.ANPRN ---
Procedure Note - Anesthesia - Nerve Block Performed Right Adductor Canal Infusion Time Out Performed: Yes Date of Procedure: 05/28/25 Procedure Start Time: :18 Procedure Stop Time: :22 Location of Patient: PreOp Indication: Acute Post-Operative Pain, Requested by Surgeon Sedation Type: Sedate with meaningful contact maintained Preparation: Sterile Prep, Sterile Dressing Position: Supine Catheter: Indwelling Needle Types: Pajunk Needle Gauge: 21 Ultrasound used to visualize needle placement: Yes Ultrasound used to observe medication spread: Yes Blood Aspirated: No Pain Paresthesia on Injection Noted: No Resistance on Injection: Normal Image Stored and Saved: Yes Events: Uneventful and Well Tolerated (Ropivacaine 0.5% 20 cc plus dexamethasone 4 mg)
--- NOTE | 2025-05-28 14:20 | P.ANPRN ---
Procedure Note - Anesthesia - Nerve Block Performed Right Roberck Single Time Out Performed: Yes Date of Procedure: 05/28/25 Procedure Start Time: Procedure Stop Time: Location of Patient: PreOp Indication: Acute Post-Operative Pain, Requested by Surgeon Sedation Type: Sedate with meaningful contact maintained Preparation: Sterile Prep Position: Supine Needle Types: Pajunk Needle Gauge: 21 Ultrasound used to visualize needle placement: Yes Ultrasound used to observe medication spread: Yes Blood Aspirated: No Pain Paresthesia on Injection Noted: No Resistance on Injection: Normal Image Stored and Saved: Yes Events: Uneventful and Well Tolerated (Ropivacaine 0.5% 20 cc plus dexamethasone 4 mg)
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
[2025-05-28] MEDS: CYCLOBENZAPRINE 5 MG TAB PO SCH (22:13)
[2025-05-28] MEDS: SENNOSIDES-DOCUSATE SODIUM 1 EACH TAB PO SCH (22:13)
[2025-05-28] MEDS: ASPIRIN 81 MG PO SCH (22:13)
[2025-05-28] MEDS: GABAPENTIN 100 MG CAP PO SCH (22:13)
[2025-05-28] MEDS: DULoxetine HCL 60 MG CAPSULE.DR PO SCH (22:13)
[2025-05-28] MEDS: HYDROmorphone 1 MG/ML 1 ML SYRINGE IVP PRN (22:14)
[2025-05-29] MEDS: LEVOTHYROXINE 88 MCG TAB PO SCH (06:14)
[2025-05-29 07:17] LABS: Basophils # (A) 0.01 X 10*3/uL (0.00-0.10); Basophils % (A) 0.1 %; Eosinophils # (A) 0 X 10*3/uL (0.04-0.35); Eosinophils % (A) 0 %; HCT 33.9 % (37.2-46.3); HGB 11.1 g/dL (12.0-15.0); Immature Grans, Automated 0.70 %; Lymphocytes # (A) 2.23 X 10*3/uL (0.90-5.00); Lymphocytes % (A) 16.7 %; MCH 31.3 pg (27.0-32.0); MCHC 32.7 g/dL (32.0-37.0); MCV 95.5 FL (80.0-97.0); Monocytes # (A) 1.06 X 10*3/uL (0.20-1.00); Monocytes % (A) 7.9 %; NRBC Per 100 WBC 0 X 10*3/uL (0.00-0.01); Neutrophils # (A) 9.97 X 10*3/uL (1.80-7.70); Neutrophils % (A) 74.6 %; Platelet Count 254 X 10*3/uL (140-440); RBC 3.55 X 10*6/uL (4.10-5.20); RDW 12.0 % (11.5-14.5); WBC 13.36 X 10*3/uL (4.50-10.00)
[2025-05-29] MEDS: LOSARTAN 50 MG TAB PO SCH (07:39)
[2025-05-29] MEDS: MULTIVITAMINS, THERA 1 EACH TAB PO SCH (07:39)
[2025-05-29] MEDS: oxyCODONE-APAP 5-325MG 1 EACH TAB PO PRN (12:11)
[2025-05-29] MEDS: traMADol 50 MG TAB PO PRN (13:36)
--- NOTE | 2025-05-29 14:24 | P.PN ---
Subjective Progress Note Date: 05/29/25 No new complaints. Medically cleared for discharge. Gen: In NAD, non-toxic HEENT: normocephalic, atraumatic, hearing acuity is intant, mucous membranes moist CVS: perfusing all extremities well, no pitting edema, Respiratory: symmetric chest expansion, no accessory muscle use, GI: soft, NTTP, ND, : no suprapubic tenderness, no CVA tenderness MSK/Derm: no rashes, cyanosis Neuro: CN II-XII intact, no motor weakness, Psych: cooperative, euthymic mood, judgment and insight is intact Hospital Course: 49-year-old woman with medical history of hypothyroidism, chronic pain from degenerative disc disease, hypertension, overactive bladder presented for evaluation of elective total knee arthroplasty. Patient is hemodynamically stable. No labs to review. Knee x-ray shows satisfactory alignment of metallic hardware from total right knee arthroplasty. Assessment/plan: Hypertension - Resume losartan Overactive bladder - Resume oxybutynin Hypothyroidism - Resume levothyroxine Chronic pain from degenerative disc disease - Resume gabapentin Status post TKA, postop day 0 - Care per primary team - DVT prophylaxis per primary team Thank for this consult. Please reach out with any questions or concerns. Objective - Vital Signs Vital signs: Vital Signs Temp 97.7 F 05/29/25 13:15 Pulse 83 05/29/25 13:15 Resp 18 05/29/25 13:15 BP 108/69 05/29/25 13:15 Pulse Ox 90 L 05/29/25 13:15 FiO2 Intake & Output 05/28/25 05/29/25 05/29/25 18:59 06:59 18:59 Intake Total 1751 250 Output Total 40 Balance 1711 250 Weight 82 kg Intake: IV 1151 Intake, IV Titration 350 Amount Lactated Ringers 1,000 ml 300 @ 20 mls/hr IV .Q24H TED Rx#:[id number] ceFAZolin 2 gm In Sodium 50 Chloride 0.9% 50 ml @ 100 mls/hr IVPB Q8HR TED Rx# :[id number] Oral 250 250 Output: Estimated Blood Loss 40 Other: Voiding Method Bedside Commode Bedside Commode # Voids 2 1 - Labs CBC & Chem 7: 05/29/25 02:56 Labs: Abnormal Lab Results - Last 24 Hours (Table) 05/29/25 Range/Units 02:56 WBC 13.36 H (4.50-10.00) X 10*3/uL RBC 3.55 L (4.10-5.20) X 10*6/uL Hgb 11.1 L (12.0-15.0) g/dL Hct 33.9 L (37.2-46.3) % Immature Gran # 0.09 H (0.00-0.04) X 10*3/uL Neutrophils # 9.97 H (1.80-7.70) X 10*3/uL Monocytes # 1.06 H (0.20-1.00) X 10*3/uL Eosinophils # 0 L (0.04-0.35) X 10*3/uL
--- NOTE | 2025-05-29 16:06 | P.PN ---
Subjective Progress Note Date: 05/29/25 Principal diagnosis: s/p right total knee arthroplasty Patient evaluated at bedside, she was evaluated on 2 separate occasions today. Patient had been doing pretty well this morning, I did see her later in the afternoon after working with therapy and she has had a lot more pain that is requiring use of IV Dilaudid. We have adjusted her oral medications. She denies headaches, lightheadedness, chest pain or shortness of breath. Objective - Vital Signs Vital signs: Vital Signs Temp 97.7 F 05/29/25 13:15 Pulse 83 05/29/25 13:15 Resp 18 05/29/25 13:15 BP 108/69 05/29/25 13:15 Pulse Ox 90 L 05/29/25 13:15 FiO2 Intake & Output 05/28/25 05/29/25 05/29/25 18:59 06:59 18:59 Intake Total 1751 450 Output Total 40 300 Balance 1711 150 Weight 82 kg Intake: IV 1151 Intake, IV Titration 350 Amount Lactated Ringers 1,000 ml 300 @ 20 mls/hr IV .Q24H TED Rx#:[id number] ceFAZolin 2 gm In Sodium 50 Chloride 0.9% 50 ml @ 100 mls/hr IVPB Q8HR TED Rx# :[id number] Oral 250 450 Output: Urine 300 Estimated Blood Loss 40 Other: Voiding Method Bedside Commode Bedside Commode # Voids 2 1 - Exam Right lower extremity: Incision is clean, dry, and intact. The foam dress is in good condition. There is minimal soft tissue swelling and ecchymosis surrounding the medial and lateral aspects of the incision. Calf is soft, no tenderness with palpation. Plantar flexion, dorsiflexion, EHL, FHL are intact. Sensory exam to light touch throughout the extremity is intact, dorsal pedis pulses 2+. - Labs CBC & Chem 7: 05/29/25 02:56 Labs: Abnormal Lab Results - Last 24 Hours (Table) 05/29/25 Range/Units 02:56 WBC 13.36 H (4.50-10.00) X 10*3/uL RBC 3.55 L (4.10-5.20) X 10*6/uL Hgb 11.1 L (12.0-15.0) g/dL Hct 33.9 L (37.2-46.3) % Immature Gran # 0.09 H (0.00-0.04) X 10*3/uL Neutrophils # 9.97 H (1.80-7.70) X 10*3/uL Monocytes # 1.06 H (0.20-1.00) X 10*3/uL Eosinophils # 0 L (0.04-0.35) X 10*3/uL Assessment and Plan Assessment: Postoperative day #1 status post right total knee arthroplasty Plan: Pain control, did adjust oral medications, continue to use IV medication as needed Icing and elevating techniques discussed Continue PT/OT DVT prophylaxis, continue current medications Medical recommendations appreciated Discharge planning: Will keep patient in hospital for an additional night for pain control, will reassess on 05/30/2025 Time with Patient: Less than 30
[2025-05-30] MEDS: IBUPROFEN 800 MG TAB PO PRN (10:20)
--- NOTE | 2025-05-30 10:23 | P.PN ---
Subjective Progress Note Date: 05/30/25 Principal diagnosis: s/p right total knee arthroplasty Patient evaluated at bedside, she is resting in her hospital bed. Patient continues to struggle with pain control. She feels that the Dilaudid does take the edge off but none of the oral medications are working. We will add Motrin 800 mg at this time, we will also increase her Flexeril. She denies headaches, lightheadedness, chest pain or shortness of breath. Objective - Vital Signs Vital signs: Vital Signs Temp 98.0 F 05/30/25 07:56 Pulse 84 05/30/25 07:56 Resp 18 05/30/25 07:56 BP 127/84 05/30/25 07:56 Pulse Ox 92 L 05/30/25 01:25 FiO2 Intake & Output 05/29/25 05/30/25 05/30/25 18:59 06:59 18:59 Intake Total 450 Output Total 300 Balance 150 Intake: Oral 450 Output: Urine 300 Other: Voiding Method Bedside Commode # Voids 2 - Exam Right lower extremity: Incision is clean, dry, and intact. The foam dress is in good condition. There is minimal soft tissue swelling and ecchymosis surrounding the medial and lateral aspects of the incision. Calf is soft, no tenderness with palpation. Plantar flexion, dorsiflexion, EHL, FHL are intact. Sensory exam to light touch throughout the extremity is intact, dorsal pedis pulses 2+. - Labs CBC & Chem 7: 05/29/25 02:56 Assessment and Plan Assessment: Postoperative day #2 status post right total knee arthroplasty Plan: Pain control, medications were adjusted again today Icing and elevating techniques discussed Continue PT/OT DVT prophylaxis, continue current medications Medical recommendations appreciated Discharge planning: continue to keep patient in hospital for pain control issues Time with Patient: Less than 30
--- NOTE | 2025-05-30 13:00 | P.PN ---
Subjective Progress Note Date: 05/30/25 Subjective: Patient seen and examined at bedside. No acute events overnight. Still complaining of significant pain in the right knee leading to difficulty getting out of the bed. Denies any other complaints. Pertinent positives and negatives as discussed above, a complete review of systems was performed and all other systems are negative. Vitals Signs Reviewed. General: Nontoxic, no distress, appears at stated age Derm: Warm, dry, dressing clean, dry, intact Head: Atraumatic, normocephalic, symmetric Eyes: EOMI, no lid lag, anicteric sclera Mouth: No lip lesion, mucus membranes moist Cardiovascular: S1S2 reg, no murmur Lungs: CTA bilateral, no rhonchi, no rales, no accessory muscle use Abdominal: Soft, nontender to palpation, no guarding, no appreciable organomegaly Ext: No gross muscle atrophy, no edema, no contractures Neuro: CN II-XI grossly intact, no focal neuro deficits Psych: Alert, oriented, appropriate affect Data Reviewed Today: Pertinent Labs: No new labs Imaging: No new imaging Assessment and Plan: Active: Hypertension - Continue losartan 100 mg daily Hypothyroidism - Continue levothyroxine 88 mcg daily Neuropathy Depression/anxiety - Continue gabapentin 100 twice daily, Cymbalta 60 nightly, 30 every morning Overactive bladder - Continue oxybutynin 5 mg nightly Status post right total knee arthroplasty Leukocytosis, anticipated from surgery Mild normocytic anemia, anticipated outcome of surgery - On IV Dilaudid as needed, p.o. ibuprofen, oral Percocet as needed - Bowel regimen and DVT prophylaxis per orthopedic surgery - Okay to continue LR at 100 cc an hour Patient is medically optimized for discharge Thank you for allowing us to participate in the care of this pleasant patient. Do not hesitate to contact us with questions. Someone can be reached from the [facility] hospitalist group all hours of the day at [phone] or via [employer]. Objective - Vital Signs Vital signs: Vital Signs Temp 98.0 F 05/30/25 07:56 Pulse 84 05/30/25 07:56 Resp 18 05/30/25 07:56 BP 127/84 05/30/25 07:56 Pulse Ox 92 L 05/30/25 01:25 FiO2 Intake & Output 05/29/25 05/30/25 05/30/25 18:59 06:59 18:59 Intake Total 450 Output Total 300 Balance 150 Intake: Oral 450 Output: Urine 300 Other: Voiding Method Bedside Commode # Voids 2 - Labs CBC & Chem 7: 05/29/25 02:56
[2025-05-30] MEDS: CYCLOBENZAPRINE 10 MG TAB PO SCH (20:19)
[2025-05-31 07:53] VITALS: BP 118/76; PULSE 88; RESP 18; TEMP 98.1
[2025-05-31 08:19] LABS: Basophils # (A) 0.06 X 10*3/uL (0.00-0.10); Basophils % (A) 0.5 %; Eosinophils # (A) 0.28 X 10*3/uL (0.04-0.35); Eosinophils % (A) 2.5 %; HCT 33.4 % (37.2-46.3); HGB 10.8 g/dL (12.0-15.0); Immature Grans, Automated 0.60 %; Lymphocytes # (A) 4.08 X 10*3/uL (0.90-5.00); Lymphocytes % (A) 37.0 %; MCH 30.7 pg (27.0-32.0); MCHC 32.3 g/dL (32.0-37.0); MCV 94.9 FL (80.0-97.0); Monocytes # (A) 1.03 X 10*3/uL (0.20-1.00); Monocytes % (A) 9.3 %; NRBC Per 100 WBC 0 X 10*3/uL (0.00-0.01); Neutrophils # (A) 5.52 X 10*3/uL (1.80-7.70); Neutrophils % (A) 50.1 %; Platelet Count 253 X 10*3/uL (140-440); RBC 3.52 X 10*6/uL (4.10-5.20); RDW 12.5 % (11.5-14.5); WBC 11.04 X 10*3/uL (4.50-10.00)
--- NOTE | 2025-05-31 08:55 | P.PN ---
Subjective Progress Note Date: 05/31/25 Subjective: Patient seen and examined at bedside. No acute events overnight. Knee pain has not improved. Pertinent positives and negatives as discussed above, a complete review of systems was performed and all other systems are negative. Vitals Signs Reviewed. General: Nontoxic, no distress, appears at stated age Derm: Warm, dry, dressing clean, dry, intact Head: Atraumatic, normocephalic, symmetric Eyes: EOMI, no lid lag, anicteric sclera Mouth: No lip lesion, mucus membranes moist Cardiovascular: S1S2 reg, no murmur Lungs: CTA bilateral, no rhonchi, no rales, no accessory muscle use Abdominal: Soft, nontender to palpation, no guarding, no appreciable organomegaly Ext: No gross muscle atrophy, no edema, no contractures Neuro: CN II-XI grossly intact, no focal neuro deficits Psych: Alert, oriented, appropriate affect Data Reviewed Today: Pertinent Labs: WBC 11.04, hemoglobin 10.8 Imaging: No new imaging Assessment and Plan: Active: Hypertension - Continue losartan 100 mg daily Hypothyroidism - Continue levothyroxine 88 mcg daily Neuropathy Depression/anxiety - Continue gabapentin 100 twice daily, Cymbalta 60 nightly, 30 every morning Overactive bladder - Continue oxybutynin 5 mg nightly Status post right total knee arthroplasty Leukocytosis, anticipated from surgery Mild normocytic anemia, anticipated outcome of surgery - On IV Dilaudid as needed, p.o. ibuprofen, oral Percocet as needed - Bowel regimen and DVT prophylaxis per orthopedic surgery - Okay to continue LR at 100 cc an hour Patient is medically optimized for discharge Thank you for allowing us to participate in the care of this pleasant patient. Do not hesitate to contact us with questions. Someone can be reached from the [facility] hospitalist group all hours of the day at [phone] or via [employer]. Objective - Vital Signs Vital signs: Vital Signs Temp 98.1 F 05/31/25 07:05 Pulse 88 05/31/25 07:05 Resp 18 05/31/25 07:05 BP 118/76 05/31/25 07:05 Pulse Ox 93 L 05/31/25 07:05 FiO2 Intake & Output 05/30/25 05/31/25 05/31/25 18:59 06:59 18:59 Other: # Voids 3 2 - Labs CBC & Chem 7: 05/31/25 02:43 Labs: Abnormal Lab Results - Last 24 Hours (Table) 05/31/25 Range/Units 02:43 WBC 11.04 H (4.50-10.00) X 10*3/uL RBC 3.52 L (4.10-5.20) X 10*6/uL Hgb 10.8 L (12.0-15.0) g/dL Hct 33.4 L (37.2-46.3) % Immature Gran # 0.07 H (0.00-0.04) X 10*3/uL Monocytes # 1.03 H (0.20-1.00) X 10*3/uL
--- NOTE | 2025-05-31 13:23 | P.PN ---
Subjective Progress Note Date: 05/31/25 Principal diagnosis: s/p right total knee arthroplasty Patient evaluated at bedside, she is resting in her hospital bed. Patient has noticed an improvement in her overall pain after adding the ibuprofen. Patient is eager to be discharged home today. She denies headaches, lightheadedness, chest pain or shortness of breath. Objective - Vital Signs Vital signs: Vital Signs Temp 98.1 F 05/31/25 07:05 Pulse 88 05/31/25 07:05 Resp 18 05/31/25 07:05 BP 118/76 05/31/25 07:05 Pulse Ox 93 L 05/31/25 07:05 FiO2 Intake & Output 05/30/25 05/31/25 05/31/25 18:59 06:59 18:59 Other: # Voids 3 2 - Exam Right lower extremity: Incision is clean, dry, and intact. The foam dress is in good condition. There is minimal soft tissue swelling and ecchymosis surrounding the medial and lateral aspects of the incision. Calf is soft, no tenderness with palpation. Plantar flexion, dorsiflexion, EHL, FHL are intact. Sensory exam to light touch throughout the extremity is intact, dorsal pedis pulses 2+. - Labs CBC & Chem 7: 05/31/25 02:43 Labs: Abnormal Lab Results - Last 24 Hours (Table) 05/31/25 Range/Units 02:43 WBC 11.04 H (4.50-10.00) X 10*3/uL RBC 3.52 L (4.10-5.20) X 10*6/uL Hgb 10.8 L (12.0-15.0) g/dL Hct 33.4 L (37.2-46.3) % Immature Gran # 0.07 H (0.00-0.04) X 10*3/uL Monocytes # 1.03 H (0.20-1.00) X 10*3/uL Assessment and Plan Assessment: Postoperative day #3 status post right total knee arthroplasty Plan: Pain control, plan for discharge with Motrin 800 along with Percocet 5 mg / 325 mg Icing and elevating techniques discussed Continue PT/OT DVT prophylaxis, aspirin 81 mg twice a day for 30 days Medical recommendations appreciated Discharge planning: Plan for discharge home today Time with Patient: Less than 30
--- NOTE | 2025-05-31 13:25 | P.DS ---
Providers Date of admission: 05/28/25 09:42 Expected date of discharge: 05/31/25 Attending physician: Brad Garcia Consults: 05/28/25 09:38 Consult Physician Routine Consulting Provider: Lei Fong Consult Reason/Comments: Medical management Do you want consulting provider notified?: Yes Primary care physician: Snehal Dunlap MD Hospital Course: Date of admission: 05/28/2025 Date of discharge: 05/31/2025 Admission diagnosis: Status post right total knee arthroplasty Discharge diagnosis: Same Attending physician: Dr. Garcia Surgical procedures: Right total knee arthroplasty Brief history: Patient is a 49-year-old female with a history of progressive primary right knee osteoarthritis. At this point patient has failed conservative treatment measures and has opted to proceed with a elective right total knee arthroplasty. Hospital course: Details of patient's surgery can be found in operative report. Patient tolerated the procedure well and was subsequently transported to orthopedic floor. Patient's orthopeidc and medical care was provided daily. Patient had daily laboratory tests performed for evaluation of overall blood counts. Patient had daily physical therapy to include strengthening range of motion as well as education with walker ambulation. Patient was treated with aspirin for their postoperative DVT prophylaxis during their inpatient stay. Patient was noted to have a relatively uneventful postoperative course. Patient reported satisfactory pain control with oral pain medications by postoperative day 3. Patient showed satisfactory progress with physical therapy. Patient moved steadily through the program and had no difficulty meeting the goals by postoperative day 3. Given patient's otherwise satisfactory course and having met physical therapy goals, plan is to discharge patient [home] on postoperative day 3. Discharge condition/disposition: Patient will be discharged [home] in stable condition. Discharge medications: Instructions are given on resumption of patient's normal daily medications per primary care recommendation, in addition patient will be prescribed Percocet 5 mg / 325 mg, ibuprofen 800 mg, senna S, aspirin 81 mg. Discharge instructions: 1. Wound care and infection precautions, [keep incision dry and covered while showering], no lotions, creams, moisturizers. No soaking, tubs, pools, hottubs. Do not scrub over the incision. 2. Weight-bear [as tolerated] with walker / cane until follow-up. 3. Ice and elevate when necessary. Do not exceed 20 minutes per hour with ice pack. 4. Utilize compression sleeve until seen at first follow up appointment. 5. Visiting nursing care. 6. Home physical therapy [including home CPM]. 7. Pain meds and anticoagulants per prescription. 8. Pain medication has potential to cause constipation. Increase oral fluid and fiber intake. Contact primary care provider if you have not had a bowel movement within 48 hours after discharge 9. No anti-inflammatory medication until discussed at first post operative visit, this including Motrin, Aleve, Mobic, Diclofenac. 10. Follow up in office at 2 weeks postop with Jerrod Harrington PA-C/Deshaun Yin 11. Follow up with your primary care doctor 7-10 days after discharge. 12. Contact [facility] with any questions, . Procedures: Right total knee arthroplasty Patient Condition at Discharge: Good Plan - Discharge Summary Discharge Rx Participant: No New Discharge Prescriptions: New oxyCODONE-APAP 5-325MG [Percocet 5-325 mg] 1 tab PO Q6HR PRN 7 Days #28 tab PRN Reason: Pain Sennosides/Docusate Sodium [Senna-S 8.6-50 mg Tablet] 2 each PO DAILY PRN #30 tablet PRN Reason: Constipation Aspirin [Adult Low Dose Aspirin EC] 81 mg PO BID #60 tab Ibuprofen [Motrin] 800 mg PO Q8H PRN #40 tab PRN Reason: Pain Continue Losartan [Cozaar] 100 mg PO QAM Cetirizine HCl [Zyrtec] 10 mg PO DAILY DULoxetine HCL [Cymbalta] 60 mg PO HS DULoxetine HCL [Cymbalta] 30 mg PO QAM Gabapentin [Neurontin] 100 mg PO BID Levothyroxine Sodium 88 mcg PO DAILY oxyBUTYnin chloride 5 mg PO HS Naltrexone HCl [Naltrex] 4.5 mg PO HS No Action Cyclobenzaprine [Flexeril] 5 mg PO HS Venoprotex Supplement 1 dose PO BID K2 45 mcg PO DAILY Orthomega 820 Supplement 1 dose PO DAILY Ibuprofen [Motrin] 800 mg PO Q8H PRN PRN Reason: Pain Ubidecarenone [Co Q-10] 1 dose PO DAILY Turmeric Root Extract [Turmeric] 1 dose PO BID Aloe Vera 25 mg PO DAILY Metabolic Support Supplement 1 dose PO DAILY Discharge Medication List Losartan [Cozaar] 100 mg PO QAM 12/18/18 [History] Cetirizine HCl [Zyrtec] 10 mg PO DAILY 03/05/20 [History] DULoxetine HCL [Cymbalta] 60 mg PO HS 09/13/20 [History] DULoxetine HCL [Cymbalta] 30 mg PO QAM 12/12/20 [History] Gabapentin [Neurontin] 100 mg PO BID 08/11/22 [History] Levothyroxine Sodium 88 mcg PO DAILY 07/06/23 [History] Aloe Vera 25 mg PO DAILY 05/21/25 [History] Cyclobenzaprine [Flexeril] 5 mg PO HS 05/21/25 [History] Ibuprofen [Motrin] 800 mg PO Q8H PRN 05/21/25 [History] K2 45 mcg PO DAILY 05/21/25 [History] Metabolic Support Supplement 1 dose PO DAILY 05/21/25 [History] Naltrexone HCl [Naltrex] 4.5 mg PO HS 05/21/25 [History] Orthomega 820 Supplement 1 dose PO DAILY 05/21/25 [History] Turmeric Root Extract [Turmeric] 1 dose PO BID 05/21/25 [History] Ubidecarenone [Co Q-10] 1 dose PO DAILY 05/21/25 [History] Venoprotex Supplement 1 dose PO BID 05/21/25 [History] oxyBUTYnin chloride 5 mg PO HS 05/21/25 [History] Aspirin [Adult Low Dose Aspirin EC] 81 mg PO BID #60 tab 05/31/25 [Rx] Ibuprofen [Motrin] 800 mg PO Q8H PRN #40 tab 05/31/25 [Rx] Sennosides/Docusate Sodium [Senna-S 8.6-50 mg Tablet] 2 each PO DAILY PRN #30 tablet 05/31/25 [Rx] oxyCODONE-APAP 5-325MG [Percocet 5-325 mg] 1 tab PO Q6HR PRN 7 Days #28 tab 05/31/25 [Rx] Follow up Appointment(s)/Referral(s): [facility] [NON-STAFF] - As Needed (Continuous Passive Motion knee machine and walker) Juan [facility], [NON-STAFF] - As Needed Carlos Harrington PAC [[employer]] - 1 Week (Please call office regarding appointment ) Activity/Diet/Wound Care/Special Instructions: Orthopedic Discharge Instructions: 1. Wound care and infection precautions, keep incision dry and covered while showering, no lotions, creams, moisturizers. No soaking, pools, hot tubs. Do not scrub over incision. 2. Weight-bear as tolerated with walker / cane until follow-up. 3. Ice and elevate when necessary. Do not exceed 20 minutes per hour with ice pack. 4. Utilize compression sleeve until seen at first follow up appointment. 5. Pain meds and anticoagulants per prescription. 6. Pain medication has potential to cause constipation. Increase oral fluid and fiber intake. Contact primary care provider if you have not had a bowel movement within 48 hours after discharge. 7. No anti-inflammatory medication until discussed at first post operative visit, this including Motrin, Aleve, Mobic, Diclofenac. 8. Follow up in office at 2 weeks postop with Jerrod Harrington PA-C/Deshaun Bañuelos PA-C 9. Follow up with your primary care doctor 7-10 days after discharge. 10. Contact [facility] with any questions, . Wound care instructions: 1. Okay to remove surgical dressing as of 06/06/2025 2. Okay to shower directly over the incision after removal of dressing Discharge Disposition: HOME WITH HOME HEALTH SERVICES
== END 2025-05-31 14:37 | disposition home health service (06) | DRG 326 ==
LOC: OR 05:55 → 4SSUR 09:42
PROVIDERS: ADMIT Orthopaedic Surgery; ATTEND Orthopaedic Surgery
PROC: 0SRC0J9 Replacement of Right Knee Joint with Synthetic Substitute, Cemented, Open Approach (ICD-10-PCS; principal; 2025-05-28 07:30)
DX: M17.11 Unilateral primary osteoarthritis, right knee (principal); I10 Essential (primary) hypertension; E03.9 Hypothyroidism, unspecified; G62.9 Polyneuropathy, unspecified; F32.A Depression, unspecified; F41.9 Anxiety disorder, unspecified; K21.9 Gastro-esophageal reflux disease without esophagitis; E05.00 Thyrotoxicosis with diffuse goiter without thyrotoxic crisis or storm; N32.81 Overactive bladder; D64.9 Anemia, unspecified; D72.829 Elevated white blood cell count, unspecified; G89.29 Other chronic pain; Z79.890 Hormone replacement therapy; Z79.899 Other long term (current) drug therapy; Z88.6 Allergy status to analgesic agent; Z92.21 Personal history of antineoplastic chemotherapy; Z85.3 Personal history of malignant neoplasm of breast
CPT/HCPCS: 64448; 64473; 85025

== ENCOUNTER → 2025-06-12 | Outpatient (CLI) | payer OTHER ==
[2025-06-12 15:36] LABS: ALT 15 U/L (8-44); AST 20 U/L (13-35); Albumin 4.6 g/dL (3.8-4.9); Albumin/Globulin Ratio 1.64 Ratio (1.60-3.17); Alkaline Phosphatase 94 U/L (41-126); Anion Gap 12.50 mmol/L (4.00-12.00); BUN/Creat Ratio 29.29 Ratio (12.00-20.00); Blood Urea Nitrogen 20.5 mg/dL (9.0-27.0); Calcium 10.3 mg/dL (8.7-10.3); Carbon Dioxide 23.5 mmol/L (21.6-31.8); Chloride 103 mmol/L (96-109); Globulin 2.8 g/dL (1.6-3.3); Glucose 98 mg/dL (70-110); Potassium 4.3 mmol/L (3.5-5.5); Sodium 139 mmol/L (135-145); T4, Free (Free Thyroxine) 1.05 ng/dL (0.80-1.80); Total Protein 7.4 g/dL (6.2-8.2)
== END | disposition home or self-care (01) ==
LOC: LABWHC1 10:07
PROVIDERS: ATTEND Internal Medicine
DX: E55.9 Vitamin D deficiency, unspecified (principal); E07.9 Disorder of thyroid, unspecified; E03.9 Hypothyroidism, unspecified; H57.89 Other specified disorders of eye and adnexa; R79.89 Other specified abnormal findings of blood chemistry
CPT/HCPCS: 36415; 80053; 82306; 83970; 84100; 84439; 84443; 84445; 84481